=== PATIENT | male | born 1955 | race Two or more races ===

== ENCOUNTER 2016-07-11 01:53 | Emergency (ER) | payer OTHER ==
[2016-07-11 02:01] VITALS: BP 139/93
[2016-07-11] MEDS ORDERED: Morphine INJ* 4 MG/ML 1 ML SYRINGE ONE (02:59)
[2016-07-11] MEDS ORDERED: Ondansetron INJ* 2 MG/ML VIAL ONE (02:59)
[2016-07-11] MEDS ORDERED: Morphine INJ* 4 MG/ML 1 ML SYRINGE IV ONE (03:02)
[2016-07-11] MEDS ORDERED: Ondansetron INJ* 2 MG/ML VIAL IV ONE (03:02)
[2016-07-11] MEDS ORDERED: Ketorolac INJ* 30 MG/ML 1 ML VIAL ONE (03:35)
[2016-07-11] MEDS ORDERED: Ketorolac INJ* 30 MG/ML 1 ML VIAL IM ONE (03:37)
[2016-07-11] MEDS ORDERED: NS 0.9% 1000 ML* 1,000 ML IV ONE ×2 (03:42→05:44)
[2016-07-11 04:25] LABS: Hematocrit 46 % (42-52); Hemoglobin 15.4 g/dl (14.0-18.0); Mean Corpuscular HGB Conc 33 g/dl (31-36); Mean Corpuscular Hemoglobin 31 pg (27-31); Mean Corpuscular Volume 92 fL (80-94); Mean Platelet Volume 11 um3 (7.4-10.4); Red Blood Count 5.03 10^6/ul (4.0-5.4); Red Cell Distribution Width 14 % (10.5-15); White Blood Count 8.9 10^3/ul (3.5-10.8)
[2016-07-11] MEDS ORDERED: HYDROmorphone* 1 MG/ML 1 ML SYR IV SLOW PU ONE (04:26)
[2016-07-11 04:32] LABS: Urine Bilirubin Negative (Negative); Urine Glucose Negative (Negative); Urine Nitrite Negative (Negative)
[2016-07-11 04:38] LABS: Albumin 4.4 g/dL (3.2-5.2); BUN/Creatinine Ratio 22.5 (8-20); Calcium 9.8 mg/dL (8.6-10.3); EGFR Non-African American 66.9 (>60); Globulin 2.8 g/dL (2-4); Potassium 3.7 mmol/L (3.5-5.0); Total Bilirubin 0.4 mg/dL (0.2-1.0); Total Protein 7.2 g/dL (6.4-8.9)
--- NOTE | 2016-07-11 07:02 | ED ---
Vincenzo Smith Adam, scribed for Bernard Inman on 07/11/16 at 0334 . Abdominal Pain/Male - HPI Summary HPI Summary: Pt is a 61 year old male presenting with pain in his RLQ and right flank. It radiates into his right testicle and right thigh. The pain set on suddenly at 23 :30 and was growing progressively worse until he was given pain medication in the ED. The pain is currently a 6-7 out of 10 in severity. Pt also c/o nausea w/ o vomiting. He had a BM since the onset of pain and it did not affect the pain. Pt denies any hx of kidney stones. Surgical Hx of TURP. He reports that a low amount of blood has been noted in his urine by Dr. Garnett in the past. - History of Current Complaint Chief Complaint: EDGeneral Stated Complaint: RIGHT SIDE PAIN/TESTICLE PAIN Time Seen by Provider: 07/11/16 03:17 Hx Obtained From: Patient Onset/Duration: Sudden Onset, Lasting Hours, Still Present Timing: Constant Severity Initially: Moderate Severity Currently: Mild Pain Intensity: 7 Pain Scale Used: 0-10 Numeric Location: Discrete At: RLQ, Flank - Right Radiates: Yes Radiates to: Other - Right testicle and right thigh Aggravating Factor(s): Nothing Alleviating Factor(s): Nothing Associated Signs And Symptoms: Positive: Nausea. Negative: Vomiting - Allergies/Home Medications Allergies/Adverse Reactions: Allergies Allergy/AdvReac Type Severity Reaction Status Date / Time Ciprofloxacin [From Cipro] Allergy Intermediate flu Verified 07/11/16 02:45 symptoms PMH/Surg Hx/FS Hx/Imm Hx Endocrine/Hematology History: Denies: Hx Diabetes Respiratory History: Denies: Hx Asthma, Hx Chronic Obstructive Pulmonary Disease (COPD) History: Reports: Hx Benign Prostatic Hyperplasia, Other Problems/ Disorders - Urethral strictures Sensory History: Reports: Hx Contacts or Glasses - for reading Opthamlomology History: Reports: Hx Contacts or Glasses - for reading - Surgical History Surgery Procedure, Year, and Place: TURP - Immunization History Date of Tetanus Vaccine: Unsure Date of Influenza Vaccine: UTD Infectious Disease History: No Infectious Disease History: Denies: Traveled Outside the [place] in Last 30 Days - Family History Known Family History: Positive: Cardiac Disease - Father, Other - Leukemia ( Mother) - Social History Occupation: Employed Full-time Lives: With Family - Alcohol Use: Daily Alcohol Amount: an ounce daily Hx Substance Use: No Substance Use Type: Reports: None Hx Tobacco Use: No Smoking Status (MU): Never Smoked Tobacco Review of Systems Negative: Fever Positive: Abdominal Pain - RLQ, Nausea. Negative: Vomiting Positive: flank pain - Right All Other Systems Reviewed And Are Negative: Yes Physical Exam Triage Information Reviewed: Yes Vital Signs On Initial Exam: Initial Vitals Temp Pulse Resp BP Pulse Ox 97.8 F 58 20 139/93 100 07/11/16 01:55 07/11/16 01:55 07/11/16 01:55 07/11/16 01:55 07/11/16 01:55 Vital Signs Reviewed: Yes Appearance: Positive: Well-Appearing, No Pain Distress Skin: Positive: Warm, Skin Color Reflects Adequate Perfusion, Dry Head/Face: Positive: Normal Head/Face Inspection Eyes: Positive: EOMI, ALVARO ENT: Positive: Normal ENT inspection Neck: Positive: Supple, Nontender Respiratory/Lung Sounds: Positive: Clear to Auscultation, Breath Sounds Present Cardiovascular: Positive: RRR, Pulses are Symmetrical in both Upper and Lower Extremities Abdomen Description: Positive: Other: - Tenderness in the RLQ. Mild tenderness in right scrotal area. Bowel Sounds: Positive: Present Musculoskeletal: Positive: Normal, Strength/ROM Intact - Joel Coma Scale Coma Scale Total: 15 Diagnostics - Vital Signs Vital Signs Temp Pulse Resp BP Pulse Ox 07/11/16 03:03 16 07/11/16 01:55 97.8 F 58 20 139/93 100 - Laboratory Result Diagrams: 07/11/16 02:55 07/11/16 02:55 Lab Statement: Any lab studies that have been ordered have been reviewed, and results considered in the medical decision making process. - CT ABDOMEN/PELVIS CT Interpretation Completed By: Radiologist - IMPRESSION: NO INFLAMMATORY PROCESS IDENTIFIED IN THE ABDOMEN OR PELVIS. NO ABDOMINAL MASS, ADENOPATHY OR COLLECTION SEEN. NO URINARY TRACT CALCULI OR EVIDENCE OF URINARY TRACT OBSTRUCTION SEEN. NO EXPLANATION SEEN FOR THIS PATIENT'S FLANK PAIN. - EKG 05:51 Cardiac Rate: NL - 82 BPM EKG Rhythm: Sinus Rhythm - Normal - Additional Comments Diagnostic Additional Comments: Troponin I - 0.00 Abdominal Pain Fem Course/Dx - Diagnoses Provider Diagnoses: Flank pain Discharge - Discharge Plan Condition: Stable Disposition: OTHER Discharge Disposition Comment: Sign out to Dr. Loya, pending re-evaluation and ultrasound. Prescriptions: Azithromycin TAB* [Zithromax TAB (Z-VITO) 250 mg #6 tabs] 250 mg PO DAILY #4 tab Referrals: David Mon MD [Primary Care Provider] - The documentation as recorded by the Vincenzo oshea Adam accurately reflects the service I personally performed and the decisions made by , Bernard Inman.
--- NOTE | 2016-07-11 08:57 | RAD ---
Indication: Scrotal pain. Real-time sonography of the scrotum was performed. The right testis measures 4.4 x 2.6 x 3.1 cm. No intratesticular masses are noted. Normal flow is noted in the right testis. The epididymis measures 13 x 17 mm. The right epididymis is mildly enlarged with increased flow consistent with right-sided epididymitis. Trace right hydrocele is noted. The left testis measures 4.3 x 2.4 x 2.8 cm. No intratesticular masses are noted. Normal flow is noted in the left testis. The epididymis measures 9 x 11 mm. No hydrocele is noted. IMPRESSION: MILDLY ENLARGED RIGHT EPIDIDYMIS WITH HYPERVASCULARITY ON DOPPLER SONOGRAM SUGGESTIVE OF RIGHT-SIDED EPIDIDYMITIS WITH A TRACE RIGHT HYDROCELE. NO INTRATESTICULAR MASSES ARE NOTED.
[2016-07-11] MEDS ORDERED: Sulfamethox/Trimethoprim DS 800/160* TAB PO ONE (10:20)
--- NOTE | 2016-07-13 09:53 | RAD ---
Indication: Right flank pain. CT of the abdomen and pelvis was performed without oral or IV contrast administration. Coronal and sagittal reconstructed images were obtained. The lung bases demonstrate no pleural fluid or masses. Small nodule is noted in the right middle lobe peripherally measuring 4 mm. Heart is of normal size without evidence of pericardial effusion. The liver is normal in size. No focal lesions or intrahepatic duct dilatation is noted. The gallbladder demonstrates no calcified gallstones. No pericholecystic fluid or wall thickening is identified. The pancreas demonstrates no mass or pancreatic duct dilatation. The spleen is normal in size. The adrenal glands demonstrates right adrenal mass measuring approximately 11 mm may represent a small adenoma. There may be a small adenoma in the left adrenal gland measuring 7 mm. No hydronephrosis is noted in either kidney. Low density lesion upper pole right kidney measures up to 16 mm and may represent a cyst. No retroperitoneal lymphadenopathy is noted. Atherosclerotic aorta without evidence of aneurysmal dilatation is noted. CT of the pelvis demonstrates distended urinary bladder. Prostate and seminal vesicles are unremarkable. The colon is filled with stool. No hernias are identified. IMPRESSION: 1. No evidence of obstructive uropathy is noted. 2. Adrenal lesions are unchanged from previous exam of November 28, 2005. Right renal cyst may be slightly increased in size since previous exam.
== END 2016-07-11 12:04 | disposition home or self-care (01) ==
LOC: ED 01:53
DX: R10.31 Right lower quadrant pain (principal); R11.0 Nausea; R42 Dizziness and giddiness
CPT/HCPCS: 36415; 74176; 76870; 80053; 81003; 83690; 84484; 85025; 93005; 96374; 96375; 99283; A9270-GY; J1170; J1885; J2270; J2405

== ENCOUNTER 2018-03-18 12:52 | Observation (INO) | payer OTHER ==
--- NOTE | 2018-03-18 13:16 | ED ---
HPI Chest Pain - HPI Summary HPI Summary: The patient is a 63 y/o M presenting to [facility] with a chief complaint of diffuse CP starting this morning. The pain, which is located in the left sternal and lateral area of the chest, has been intermittent throughout the morning. When it is present, the pain is described as a clenching and tension feeling. The pain is currently very dull, rated 1/10 in severity. He denies nausea, SOB, and diaphoresis at this time. He has not had this particular pain before, but he recently had a heart attack within the last month while in [place], where he had symptoms of decreased stamina and difficulty with ambulation. After the heart attack, he had a stent placed. He takes Eplerenone, Atorvastatin, Aspirin, Metoprolol, and Brilinta. - History of Current Complaint Time Seen by Provider: 03/18/18 12:58 Hx Obtained From: Patient Onset/Duration: Started Hours Ago - this morning, Resolved Timing: Intermittent, Lasting Hours Initial Severity: Moderate Current Severity: Mild Pain Intensity: 1 Pain Scale Used: 0-10 Numeric Chest Pain Location: Diffuse, Lower Sternal, Left Lateral Chest Pain Radiates: No Character: Other: - clencing, tension Aggravating Factor(s): Nothing Alleviating Factor(s): Nothing Associated Signs and Symptoms: Negative: Shortness of Breath, Diaphoresis, Nausea - Allergy/Home Medications Allergies/Adverse Reactions: Allergies Allergy/AdvReac Type Severity Reaction Status Date / Time ciprofloxacin Allergy Intermediate Nausea Verified 03/18/18 14:14 Home Medications: Home Medications Aspirin 81 mg CHEW TAB* 81 mg PO QPM 03/18/18 [History Confirmed 03/18/18] Atorvastatin Calcium 40 mg PO DAILY 03/18/18 [History Confirmed 03/18/18] Brilinta 90 MG* 90 mg PO BID 03/18/18 [History Confirmed 03/18/18] Eplerenone 12.5 mg PO DAILY 03/18/18 [History Confirmed 03/18/18] Metoprolol Succinate 12.5 mg PO BID 03/18/18 [History Confirmed 03/18/18] PMH/Surg Hx/FS Hx/Imm Hx Endocrine/Hematology History: Reports: Hx Diabetes - diet controlled Cardiovascular History: Denies: Hx Hypertension Respiratory History: Denies: Hx Asthma, Hx Chronic Obstructive Pulmonary Disease (COPD) History: Reports: Hx Benign Prostatic Hyperplasia, Other Problems/ Disorders - Urethral strictures Sensory History: Reports: Hx Contacts or Glasses - for reading Opthamlomology History: Reports: Hx Contacts or Glasses - for reading - Surgical History Surgery Procedure, Year, and Place: TURP with f/u cauterization - Immunization History Date of Tetanus Vaccine: Unsure Date of Influenza Vaccine: UTD Infectious Disease History: No Infectious Disease History: Reports: Traveled Outside the [place] in Last 30 Days - Family History Known Family History: Positive: Cardiac Disease - Father, Other - Leukemia ( Mother) - Social History Alcohol Use: Daily Alcohol Amount: an ounce daily Hx Substance Use: No Substance Use Type: Reports: None Hx Tobacco Use: No Smoking Status (MU): Never Smoked Tobacco Review of Systems Negative: Skin Diaphoresis Positive: Chest Pain - diffuse under left lower sternal to lateral Negative: Shortness Of Breath Negative: Nausea All Other Systems Reviewed And Are Negative: Yes Physical Exam - Summary Physical Exam Summary: Appearance: The patient is well-nourished in no acute distress and in no acute pain. Skin: The skin is warm and dry and skin color reflects adequate perfusion. HEENT: The head is normocephalic and atraumatic. The pupils are equal and reactive. The conjunctivae are clear and without drainage. Nares are patent and without drainage. Mouth reveals moist mucous membranes and the throat is without erythema and exudate. The external ears are intact. The ear canals are patent and without drainage. The tympanic membranes are intact. Neck: The neck is supple with full range of motion and non-tender. There are no carotid bruits. There is no neck vein distension. Respiratory: Chest is non-tender. Lungs are clear to auscultation and breath sounds are symmetrical and equal. Cardiovascular: Heart is regular rate and rhythm. There is no murmur or rub auscultated. There is no peripheral edema and pulses are symmetrical and equal. Abdomen: The abdomen is soft and non-tender. There are normal bowel sounds heard in all four quadrants and there is no organomegaly palpated. Musculoskeletal: There is no back tenderness noted. Extremities are non-tender with full range of motion. There is good capillary refill. There is no peripheral edema or calf tenderness elicited. Neurological: Patient is alert and oriented to person, place and time. The patient has symmetrical motor strength in all four extremities. Cranial nerves are grossly intact. Deep tendon reflexes are symmetrical and equal in all four extremities. Psychiatric: The patient has an appropriate affect and does not exhibit any anxiety or depression. Triage Information Reviewed: Yes Vital Signs On Initial Exam: Initial Vitals Temp Pulse Resp BP Pulse Ox 99.3 F 74 16 150/90 100 03/18/18 12:58 03/18/18 12:58 03/18/18 12:58 03/18/18 12:58 03/18/18 12:58 Vital Signs Reviewed: Yes Diagnostics - Vital Signs Vital Signs Temp Pulse Resp BP Pulse Ox 03/18/18 13:03 20 150/90 03/18/18 13:01 17 03/18/18 12:58 99.3 F 74 16 150/90 100 - Laboratory Result Diagrams: 03/18/18 13:24 03/18/18 13:24 Lab Statement: Any lab studies that have been ordered have been reviewed, and results considered in the medical decision making process. - Radiology CXR Radiology Interpretation Completed By: Radiologist Summary of Radiographic Findings: No active cardiopulmonary disease. ED physician has reviewed this report. - EKG 13:03 Cardiac Rate: NL - 72 BPM EKG Rhythm: Sinus Rhythm Summary of EKG Findings: No STEMI. Re-Evaluation - Re-Evaluation First Eval Re-Evaluation Time: 14:55 Change: Unchanged Comment: I spoke with the patient concerning admission [place] [facility] He agrees with this plan. Chest Pain Course/Dx - Course Course Of Treatment: Mr. Rizzo presented with an atypical chest pain that had no identifiable exacerbating or relieving factors or associated symptoms. Approximately 3 weeks ago he was stented in [place] after a heart attack. His initial EKG and troponin here were negative. He very specifically denies any pleuritic component and states that he can cough violently without pain. On arrival his vital signs are stable and he was in no obvious distress. 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 Dr. Pineda has not seen the patient in about 5 years but is aware of his recent illness. Apparently the patient was having some symptoms prior to going to [place] but did not tell anyone. The patient also apparently left the hospital in [place] prematurely. Dr. Pineda recommends that since the details are unclear of his pathology that it would be more prudent to admit him at this time for further workup. The hospitalists were contacted for admission. - Diagnoses Provider Diagnoses: Chest pain - Provider Notifications Discussed Care Of Patient With: Jake Pineda - cardiology Time Discussed With Above Provider: 14:30 Instructed by Provider To: Other - I spoke with Dr. Pineda, who states he is unsure about the patient's symptoms because he hasn't seen the patient in a few years. He recommends admission. I spoke with Dr. Kelly, who accepts the patient for admission at 14:55. Discharge - Sign-Out/Discharge Documenting (check all that apply): Patient Departure - Patient will be admitted [place] [facility] [place] care by Dr. Kelly. - Discharge Plan Condition: Stable Disposition: ADMITTED TO [facility] - Billing Disposition and Condition Condition: STABLE Disposition: Admitted to [facility] - Attestation Statements Document Initiated by Chucky: Yes Documenting Scribe: Tete Du Provider For Whom Chucky is Documenting (Include Credential): Dr. Faraz Gonzales MD Scribe Attestation: ITete scribed for Dr. Faraz Gonzales MD on 03/18/18 at 1755. Scribe Documentation Reviewed: Yes Provider Attestation: The documentation as recorded by the Tete oshea accurately reflects the service I personally performed and the decisions made by me, Dr. Faraz Gonzales MD Status of Scribalex Document: Viewed
[2018-03-18 13:36] LABS: ABS Basophils 0 10^3/ul (0-0.2); ABS Eosinophils 0.1 10^3/ul (0-0.6); ABS Lymphocytes 1.2 10^3/ul (1.0-4.8); ABS Neutrophils 5.8 10^3/ul (1.5-7.7); ABS Nucleated RBC 0 10^3/ul; Eosinophil % 1.5 %; Hematocrit 44 % (42-52); Hemoglobin 14.7 g/dl (14.0-18.0); Lymphocyte % 14.5 %; Mean Corpuscular HGB Conc 34 g/dl (31-36); Mean Corpuscular Hemoglobin 31 pg (27-31); Mean Corpuscular Volume 91 fL (80-94); Mean Platelet Volume 9.2 fL (7.4-10.4); Nucleated Red Blood Cells % 0; Platelet Count 195 10^3/ul (150-450); Red Blood Count 4.78 10^6/ul (4.00-5.40); Red Cell Distribution Width 14 % (10.5-15); White Blood Count 8.1 10^3/ul (3.5-10.8)
[2018-03-18 13:52] LABS: INR 1.06 (0.77-1.02)
[2018-03-18 13:58] LABS: Albumin 4.1 g/dL (3.2-5.2); Albumin/Globulin Ratio 1.4 (1-3); BUN/Creatinine Ratio 17.8 (8-20); Calcium 9.6 mg/dL (8.6-10.3); EGFR Non-African American 69.4 (>60); Potassium 4.3 mmol/L (3.5-5.0); Total Bilirubin 0.4 mg/dL (0.2-1.0); Total Protein 7.1 g/dL (6.4-8.9)
--- OUTSIDE RECORDS SUMMARY | 2018-03-18 14:11 | XMS REPORT | Continuity of Care Document ---
:1955 External Reference #:[id number] Author Name Danyel Clark Care Team Providers Name Role Phone David Mon MD Primary Care Physician Unavailable Payers Type Date Identification Numbers Payment Provider Subscriber Policy Number: [id number] [employer] Ailyn Rizzo Group Number: [id number] [address] PayID: [id number] [place] [address] Advance Directives Description No Information Available Problems Date Description Provider Status Onset: 07/20/2012 Electrocardiogram abnormal Jake Pineda M.D. Active Onset: 07/20/2012 Difficulty breathing Jake Pineda M.D. Active Onset: 11/26/2011 Fever Joseph Dean M.D. 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 Tobacco Use Start: Unknown Patient has never smoked Smoking Status Reviewed: 03/17/18 Patient has never smoked Allergies, Adverse Reactions, Alerts Date Description Reaction Status Severity Comments 11/26/2011 Cipro dizziness, nausea Active Medications Medication Date Status Form Strength Qnty SIG Indications Ordering Provider Brilinta Active Tablets 90mg 1 tab Unknown 000 by mouth twice a day Metoprolol Active Tablets ER 25mg 1 by Unknown Succinate ER 000 24HR mouth every day Atorvastatin Active Tablets 40mg 1 by Unknown Calcium 000 mouth every day Eplerenone Active Tablets 25mg 1 by Unknown 000 mouth every day Ibuprofen 00/00/0 Hx Tablets 400mg 100tabs po Unknown 000 - q4-6h prn 018 Cefdinir 0 Hx Capsules 300mg 20caps 1 po Unknown 000 - bid 012 Aleve 0 Hx Capsules 220mg 60caps prn Unknown 000 - 018 Immunizations CPT Code Status Date Vaccine Lot # [id number] Given 12/09/2011 Fluzone Vaccine [id number] Vital Signs Date Vital Result Comment 03/17/2018 11:07am Height 67.50 inches 5'7.50" Weight 127.00 lb BP Systolic 118 mmHg BP Diastolic 72 mmHg Respiratory Rate 15 /min Body Temperature 96.9 F Pain Level 0 BMI (Body Mass Index) 19.6 kg/m2 12/29/2011 8:49am BP Systolic 80 mmHg BP Diastolic 50 mmHg Respiratory Rate 14 /min Body Temperature 97.2 F 12/14/2011 4:12pm Height 68 inches 5'8" Heart Rate 83 /min BP Systolic Sitting 131 mmHg BP Diastolic Sitting 74 mmHg Body Temperature 98.0 F 12/09/2011 4:17pm Height 68 inches 5'8" Heart Rate 80 /min BP Systolic Sitting 116 mmHg BP Diastolic Sitting 71 mmHg Body Temperature 98.5 F 11/26/2011 1:42pm Height 68 inches 5'8" Weight 135.00 lb Heart Rate 60 /min BP Systolic 94 mmHg BP Diastolic 58 mmHg Respiratory Rate 16 /min Body Temperature 97.2 F BMI (Body Mass Index) 20.5 kg/m2 Results Test Date Facility Test Result H/L Range Note CBC With Manual 02/02/2012 [facility] White Blood 7.0 10^3/uL 4.8-10.[address] [place] [address] [phone] Red Blood Count 5.39 10^6/uL 4.0-5.4 Hemoglobin 15.2 g/dL 14.0-18.0 Hematocrit 46 % 42-52 Mean Corpuscular Volume 85 fL 80-94 Mean Corpuscular Hemoglobin 28 pg 27-31 Mean Corpuscular HGB Conc 33 g/dL 31-36 Red Cell Distribution Width 20 % High 10.5-15 Platelet Count 197 10^3/uL 150-450 Mean Platelet Volume 10 um3 7.4-10.4 Abs Neutrophils 4.0 10^3/uL 1.5-7.7 Abs Lymphocytes 2.0 10^3/uL 1.0-4.8 Abs Monocytes 0.8 10^3/uL 0-0.8 Abs Eosinophils 0.2 10^3/uL 0-0.6 Abs Basophils 0.1 10^3/uL 0-0.2 Abs Nucleated RBC 0 10^3/uL Neutrophil % 57.0 % 38-83 Band % 1.0 % 0-8 Lymphocytes % 34.0 % 25-47 Monocytes % 5.0 % 0-13 Eosinophils % 2.0 % 0-6 Basophil % 0 % 0-2 Reactive Lymph % 1.0 % 0-6 Metamyelocytes % 0 % 0-2 Myelocytes % 0 % 0-1 Promyelocytes % 0 % Blast % 0 % RBC Morphology Normal Normal CBC W/Manual 12/28/2011 [facility] White Blood 6.7 10^3/uL 4.8-10.[address] Count [place], [place] [address] [phone] Red Blood Count 5.13 10^6/uL 4.0-5.4 Hemoglobin 14.1 g/dL 14.0-18.0 Hematocrit 43 % 42-52 Mean Corpuscular Volume 84 fL 80-94 Mean Corpuscular Hemoglobin 28 pg 27-31 Mean Corpuscular HGB Conc 33 g/dL 31-36 Red Cell Distribution Width 17 % High 10.5-15 Platelet Count 234 10^3/uL 150-450 Mean Platelet Volume 10 um3 7.4-10.4 Abs Neutrophils 4.3 10^3/uL 1.5-7.7 Abs Lymphocytes 1.5 10^3/uL 1.0-4.8 Abs Monocytes 0.7 10^3/uL 0-0.8 Abs Eosinophils 0.2 10^3/uL 0-0.6 Abs Basophils 0 10^3/uL 0-0.2 Abs Nucleated RBC 0 10^3/uL Neutrophil % 60.0 % 38-83 Band % 1.0 % 0-8 Lymphocytes % 29.0 % 25-47 Monocytes % 7.0 % 0-13 Eosinophils % 1.0 % 0-6 Basophil % 2.0 % 0-2 Reactive Lymph % 0 % 0-6 Metamyelocytes % 0 % 0-2 Myelocytes % 0 % 0-1 Promyelocytes % 0 % Blast % 0 % RBC Morphology Normal Normal CMP Panel 12/28/2011 [facility] Sodium 140 mmol/L 133-[address] [place] [address] [phone] Potassium 4.3 mmol/L 3.5-5.0 Chloride 103 mmol/L 101-111 Co2 Carbon Dioxide 32.0 mmol/L 22-32 Anion Gap 5.0 mmol/L 2-11 Glucose 109 mg/dL High 70-100 Blood Urea Nitrogen 12 mg/dL 6-24 Creatinine 0.90 mg/dL 0.50-1.40 BUN/Creatinine Ratio 13.3 8-20 Calcium 9.5 mg/dL 8.1-9.9 Total Protein 6.4 GM/DL 6.2-8.1 Albumin 3.6 GM/DL 3.6-5.4 Globulin 2.8 GM/DL 2-4 Albumin/Globulin Ratio 1.3 1-3 Total Bilirubin 0.8 mg/dL 0.1-1.0 1 Alkaline Phosphatase 103 U/L 30-110 Alt 16 U/L 14-54 Ast 17 U/L 12-42 Egfr Non- 86.7 >60 Egfr 111.5 >60 2 Laboratory test 12/28/2011 [facility] C Reactive 0.6 mg/dL High Less Than finding [address] Protein 0.5 [place] [address] [phone] Erythrocyte Sed Rate 30 MM/HR High 0-20 Retic Automated 12/04/2011 [facility] Red Cell 4.47 CUMM Low 4.6-6.[address] [place] [address] [phone] Hemoglobin 12.5 g/dL Low 14.0-18.0 Hematocrit 38 % Low 42-52 Reticulocyte Count 0.99 % 0.5-1.5 Corrected Retic 0.8 % 0.5-1.5 Retic Index 0.5 Mean Retic Volume 109.1 Immature Retic Fraction 0.36 RBC Retic Count 4.47 CUMM Low 4.6-6.2 Hematocrit For Retic Coun 38 % Low 42-52 Laboratory test 12/04/2011 [facility] Ferritin 115 NG/ML 24- [address] [place] [address] [phone] Protein 12/04/2011 [facility] Urine Pattern (SEE NOTE) [address] Ur [address] [place] [address] [phone] Total Protein Random Urine 7 mg/dL Laboratory 12/04/2011 [facility] Blood 4 test finding [address] Culture <SEE NOTE> [place] [address] [phone] Brucella AB 12/04/2011 [facility] Brucella Negative Negative Igg Eia QN [address] AB, [place] [address] [phone] Brucella AB, Igm Negative Negative Brucella AB Interpretation . () 5 Tarsha Anti-Nuclear 12/04/2011 [facility] Antinuclear AB NEGATIVE Negative Antibody [address] [place] [address] [phone] Laboratory test 12/04/2011 [facility] LDH 126 U/L 95-185 finding [address] [place] [address] [phone] C Reactive Protein 1.7 mg/dL High Less Than 0.5 Rheumatoid Factor < 15 IU/mL <15 6 Iron And Tibc 12/04/2011 [facility] Iron Total 36 g/dL Low 45-182 Serum [address] [place] [address] [phone] Unsaturated Iron Binding 280 g/dL Total Iron Binding Capacity 316 g/dL 250-450 % Iron Saturation 11 % Low 15-55 Spep Protein 12/04/2011 [facility] Albumin 2.83 GM/DL Low 3.0- 4.35 Electro, Serum [address] [place] [address] [phone] Alpha 1 0.29 GM/DL 0.09-0.33 Alpha 2 1.34 GM/DL High 0.59-1.18 Beta 0.85 GM/DL 0.68-1.02 Gamma 1.30 GM/DL 0.76-1.60 Albumin % 42.9 % Low 46-63 Alpha 1 % 4.4 % 1.2-5.3 Alpha 2 % 20.3 % High 9-17 Beta % 12.9 % 10-16 Gamma % 19.7 % 12-22 A/G Ratio 0.7 Low 0.9-2 Total Protein 6.6 GM/DL 6.2-8.1 Spep Comments (SEE NOTE) 7 Vitamin B12 And 12/04/2011 [facility] Vitamin B12 316 pg/mL 180-914 Folate Serum [address] [place] [address] [phone] Folic Acid 7.7 NG/ML See Below 8 Comp Metabolic Panel 11/26/2011 [facility] Sodium 137 mmol/L 135-[address] [place] [address] [phone] Potassium 4.3 mmol/L 3.5-5.0 Chloride 101 mmol/L 101-111 Co2 (Carbon Dioxide) 30.0 mmol/L 22-32 Anion Gap 6.0 mmol/L 2-11 9 Glucose 95 mg/dL 70-100 BUN 12 mg/dL 6-24 Creatinine 0.8 mg/dL 0.50-1.40 One Over Creatinine 1.25 BUN/Creatinine Ratio 15.0 8-20 Calcium 9.4 mg/dL 8.1-9.9 Total Protein 6.6 GM/DL 6.2-8.1 Albumin 3.2 GM/DL Low 3.6-5.4 Globulin 3.4 GM/DL 2-4 Albumin/Globulin Ratio 0.9 Low 1-3 Bilirubin Total 0.5 mg/dL 0.4-1.5 10 Alkaline Phosphatase 109 U/L 39-117 Alt (SGPT) 27 U/L 17-63 Ast (Sgot) 21 U/L 12-42 eGFR Non- 99.3 > 60 eGFR 127.7 > 60 11 CBC With Manual 11/26/2011 [facility] White Blood 8.4 CUMM 4.8-10.[address] [place] [address] [phone] Red Cell Count 4.46 CUMM Low 4.6-6.2 Hemoglobin 12.8 g/dL Low 14.0-18.0 Hematocrit 38 % Low 42-52 Mean Corpuscular Volume 85 um3 80-94 Mean Corpuscular Hemoglob 29 pg 27-31 Mean Corpuscular HGB Cone 34 g/dL 32-36 Redcell Distribution WDTH 14 % 10.5-15 Platelet Count 324 CUMM 150-450 Mean Platelet Volume 9.5 um3 7.4-10.4 Absolute Neutrophil Count 5.9 1.5-7.7 Polysegmented Neutrophil 75 % 38-83 Band Neutrophil 1 % 0-8 Lymphocyte 15 % Low 25-47 Monocyte 5 % 0-13 Eosinophil 1 % 0-6 Basophil 3 % High 0-2 Anisocytosis SLIGHT Laboratory test 11/26/2011 [facility] C Reactive 4.1 mg/dL High Less Than finding [address] Protein 0.5 [place] [address] [phone] Erythrocyte Sed Rate 87 MM/HR High 0-20 Testosterone Total 475.1 ng/dL 175-781 12 Blood Culture <SEE NOTE> 13 Vad 11/26/2011 [facility] Vad Final Nonreactive Nonreactive [address] [place] [address] [phone] 1 A metabolite of Naproxen, O-desmethylnaproxen, has been shown to interfere with the [place]-Christa method for measuring total bilirubin. Samples from patients who have taken Naproxen have shown spurious elevation in total bilirubin levels. 2 Because ethnic data is not always readily available, this report includes an eGFR for both -Americans and non- Americans. The National Kidney Disease Education Program (NKDEP) does not endorse the use of the MDRD equation for patients that are not between the ages of 18 and 70, are , have extremes of body size, muscle mass, or nutritional status, or are non- or non-. According to the National Kidney Foundation, irrespective of diagnosis, the stage of the disease is based on the level of kidney function: Stage Description GFR(mL/min/1.73 m(2)) 1 Kidney damage with normal or decreased GFR 90 2 Kidney damage with mild decrease in GFR 60-89 3 Moderate decrease in GFR 30-59 4 Severe decrease in GFR 15-29 5 Kidney failure <15 (or dialysis) 3 URINE PROTEIN BELOW DETECTABLE LEVEL. 4 RUN DATE: 12/09/11 [facility] NMI LIVE PAGE 1 RUN TIME: 0840 Specimen Inquiry RUN USER: INTERFACE Name: AILYN RIZZO Status: REG REF Re12/04/11 Age/Sex: 56/M Unit#: [id number] Location: [address] [place] [address]. : 51 SPEC #: [id number] ESSENCE: 12/04/11 STATUS: COMP REQ #: [id number] RECD: 12/04/[address]: Joseph Dean MD SOURCE: BLOOD ENTR: 12/04/[address] [facility] [address]: David Mon MD SPDESC: ROSA LONDONO MD, DMD, Jeffrey S. ORDERED: BLOOD CULTURE QUERIES: MEDENT REQUISITION # [id number] ACT WKST: BC 12/05/11 #1 Procedure Result Verified Site > AEROBIC CULTURE BOTTLE Final 12/09/11- 40 ML NO GROWTH AFTER 5 DAYS > ANAEROBIC CULTURE BOTTLE Final 12/09/11- 40 ML NO GROWTH AFTER 5 DAYS - [facility] Permit #[id number] [address] [place] [address] DEPARTMENT OF PATHOLOGY, [address] [place] [address] [facility] Permit #[id number] Giancarlo Servin M.D. Child Care Giver 5 Recommend repeat testing in 14-21 days if recent infection is suspected. Test Performed by: [facility] [address] [place] [address] [employer] Tank Repairer: Jose M Bowser III, M.D. 6 Test Performed by: [facility] [address] [place] [address] [employer] Tank Repairer: Jose M Bowser III, M.D. 7 HYPOALBUMINEMIA 8 Please note: New reference range, effective 03/12/11 NORMAL REFERENCE RANGE: GREATER THAN 4.1 NG/ML 9 Anion gap measurement may be of limited value in the presence of any alkalosis, especially in a combined acid base disorder. . 10 A metabolite of Naproxen, O-desmethylnaproxen, has been shown to interfere with the [place] method for measuring total bilirubin. Samples from patients who have taken Naproxen have shown spurious elevation in total bilirubin levels. 11 Because ethnic data is not always readily available, this report includes an eGFR for both -Americans and non- Americans. The National Kidney Disease Education Program (NKDEP) does not endorse the use of the MDRD equation for patients that are not between the ages of 18 and 70, are , have extremes of body size, muscle mass, or nutritional status, or are non- or non-. According to the National Kidney Foundation, irrespective of diagnosis, the stage of the disease is based on the level of kidney function: Stage Description GFR(mL/min/1.73 m(2)) 1 Kidney damage with normal or decreased GFR 90 2 Kidney damage with mild decrease in GFR 60-89 3 Moderate decrease in GFR 30-59 4 Severe decrease in GFR 15-29 5 Kidney failure <15 (or dialysis) 12 REFERENCE RANGE ADULT MALES 175-781 NG/DL ADULT FEMALES 10-75 NG/DL NOTE: PEDIATRIC REFERENCE RANGES HAVE NOT BEEN ESTABLISHED FOR THIS ASSAY. PLEASE REFER TO AN EXTERNAL SOURCE FOR AN ACCURATE REFERENCE RANGE. . 13 RUN DATE: 12/01/11 [facility] NMI LIVE PAGE 1 RUN TIME: 1516 Specimen Inquiry RUN USER: INTERFACE Name: AILYN RIZZO Status: REG REF Re11/26/11 Age/Sex: 56/M Unit#: [id number] Location: [address] [place] [address]. : 51 SPEC #: [id number] ESSENCE: 11/26/11 STATUS: COMP REQ #: [id number] RECD: 11/26/[address]: Joseph Dean MD SOURCE: BLOOD ENTR: 11/26/11-[address]: Yaa RIVERA,David Mcmullen [facility]: ROSA LONDONO MD, DMD, Chris Ramirez ORDERED: BLOOD CULTURE QUERIES: MEDENT REQUISITION # [id number] ACT WKST: BC 11/27/11 #1 Procedure Result Verified Site > AEROBIC CULTURE BOTTLE Final 12/01/11- 1516 ML NO GROWTH AFTER 5 DAYS > ANAEROBIC CULTURE BOTTLE Final 12/01/11- 1516 ML NO GROWTH AFTER 5 DAYS ML - [facility] Permit #[id number] [address] [place] [address] DEPARTMENT OF PATHOLOGY, [address] [place] [address] [facility] Permit #[id number] Balwinder Chicas M.D. Director Hu Osuna M.D. Child Care Giver 14 It is recognized that currently available assays for the detection of antibodies to HIV-1 and/or HIV-2 may not detect all infected individuals. HIV antibodies may be undetectable in some stages of the infection and in some clinical conditions. The performance of this assay has not been established for populations of infants or children. Assayed by Chemiluminescence Microparticle Immunoassay on the Alcira Advia Centaur CP. Values obtained with different methods or kits cannot be used interchangeably.The diagnostic specificity of the ADVIA Centaur 1/O/2 Enhanced assay in the low risk population was 99.90% (6052/6058) with a 95% confidence interval of 99.78 to 99.96%. Procedures Date Code Description Status 03/21/2013 22796 Treadmill Interp/Report Only Completed 03/21/2013 38273 Stress Test Supervsn W/Out I/R Completed 03/19/2013 36507 Mobile Cardiovascular Telemetry Over 24 HR Up To 30 Days Completed 03/01/2013 19373 EEG Recording Awake & Drowsy Completed 03/01/2013 08288 ECHO Transthorasic Realtime 2D W Doppler & Color Flow Hosp Completed 07/20/2012 25582 ECHO Stress Test Incl Perf Contiuous ekg Monitoring W/Phys Completed Superv 07/20/2012 31707 ECHO Stress Test Incl Perf Contiuous ekg Monitoring W/Phys Completed Superv 05/05/2004 43924 ECHO/Stress Completed 05/05/2004 30413 Stress Test Completed Encounters Type Date Location Provider Dx Diagnosis Office Visit 03/21/2013 [facility] Jake F. 780.2 Syncope & Collapse 9:30a Giancarlo Pineda Office Visit 03/01/2013 [facility] Onur Hardy, 432.1 Hemorrhage 1:31p renetta Murphy M.D. [facility] 780.2 Syncope & Collapse 920 Contusion Face Scalp & Neck Except Eyes 790.99 Blood Examination Other Nonspecific Findings Office Visit 02/28/2013 [facility] Ailyn Bradley 432.1 Hemorrhage 1:30p renetta Murphy II, M.D. [facility] Office Visit 07/20/2012 [facility] Jake Golden 786.09 Dyspnea & 3:30p Giancarlo Pineda Respiratory Abnormalities Other 794.31 Electrocardiogram (ECG) (EKG) Abnormal Office Visit 12/29/2011 [facility] Joseph Vasquez 780.60 Fever, Unspecified 8:50a For Delio Dean M.D. Diseases Office Visit 12/14/2011 [facility] Joseph Vasquez 780.60 Fever, Unspecified 4:20p For Delio Dean M.D. Diseases Office Visit 12/09/2011 [facility] Joseph Vasquez V04.81 Need For 4:20p For Delio Dean M.D. Prophylactic Diseases Vaccination & Inoculation/Influe nza 780.60 Fever, Unspecified Office Visit 11/26/2011 2:00p [facility] Joseph Vasquez 780.60 Fever, For Delio Dean M.D. Unspecified Diseases Plan of Treatment Future Appointment(s):05/02/2018 2:15 pm - Jarocho Ramires MD at [facility]03/21/2018 3:00 pm - Jake Pineda M.D. at [facility]03/17/2018 - Jarocho Ramires, MDS43.422A Sprain of left rotator cuff capsule, initial encounterNew Therapy:Physical TherapyFollow up:Follow up: 6 weeks prn
[2018-03-18] MEDS ORDERED: Acetaminophen TAB* 325 MG PO PRN (15:42)
[2018-03-18] MEDS ORDERED: Aspirin 81 mg CHEW TAB* 81 MG TAB.CHEW PO SCH (18:00)
[2018-03-18] MEDS ORDERED: Atorvastatin* 40 MG TAB PO SCH (18:00)
--- NOTE | 2018-03-18 21:11 | HP ---
CC: Dr. Mon; Dr. Pineda* HOSPITAL MEDICINE HISTORY AND PHYSICAL: DATE OF ADMISSION: 03/18/18 PRIMARY CARE PHYSICIAN: Dr. Mon. STRUCTURED CABLING TECHNICIAN: Dr. Pineda. ATTENDING PHYSICIAN: Dean Kelly MD* (dictation provided by Debora Posey NP) CHIEF COMPLAINT: Chest pain. HISTORY OF PRESENT ILLNESS: Mr. Rizzo is a 63-year-old male with a past medical history of a recent stent placement to his RCA on 02/28/18 while in [place] for a work trip as well as diet-controlled diabetes and hyperlipidemia. The patient reports that he went to [place] for a trip related to the work he does with [employer]. When he arrived there, he was having shortness of breath while walking through the airport. On reflection, he realized that he had been having more shortness of breath with exercise even prior to leaving from [place]. The patient went to a private [place] hospital while in [place] and was evaluated. He had a troponin elevation of 0.4. He had an echocardiogram that showed a normal ejection fraction and no significant abnormalities. His troponin continued to rise and peaked at 0.7. He therefore went on for cardiac catheterization, which found a 90% stenosis to the RCA for which he received a stent. He tolerated the procedure well. Afterwards, he had some relative hypotension with the blood pressure running 80 to 100 and therefore he was monitored in the hospital for several days. He also had an issue with his visa and remained in the hospital in total for approximately a week. The patient had the support services of [employer] due to nature of his business there in [place] and was escorted by a physician from [place] on the plane home. On the way back to [facility], the plane had a layover in [place] at which time he had chest pain. For this, he was evaluated at a [facility] and found to have normal troponins and was able to again depart to [facility] the following day again with the escort of a physician. The patient states that since returning home, he has been doing well. He has not been active as he was told he should not do anything strenous for a month. He has had a cough that has been nagging him, but he has had no fever, no chills, no shortness of breath. He notes that in one of the ambulance rides during his medical ordeal while he was out of the country, he sprained his shoulder on the left side taking off his jacket and has had a left rotator cuff injury. The patient states that he has developed chest pain today. It seems to come and go randomly. It does not seem to be associated with activity. It is along the left side of his chest. It does not radiate. He has had no shortness of breath , nausea, or diaphoresis with this. In the emergency room, Mr. Rizzo had labs which showed a normal troponin at 0.00 and an EKG which showed no evidence of ischemia and chest x-ray, which showed no acute process. PAST MEDICAL HISTORY: 1. History of coronary artery disease with cardiac cath and stent to RCA in February 28, 2018. 2. Diet-controlled diabetes. 3. Hyperlipidemia. MEDICATIONS: Medications outpatient are: 1. Metoprolol succinate 12.5 mg p.o. b.i.d. 2. Brilinta 90 mg p.o. b.i.d. 3. Aspirin 81 mg p.o. q.p.m. 4. Sildenafil 25 mg p.o. daily p.r.n. 5. Eplerenone 12.5 mg p.o. daily. 6. Atorvastatin 40 mg p.o. daily. ALLERGIES: To CIPROFLOXACIN. FAMILY HISTORY: The patient reports he had an uncle who had a bypass and related to heart valve failure at age 84 and his father had high cholesterol. SOCIAL HISTORY: No report of alcohol, tobacco, or drug use. The patient lives with his who would be his healthcare proxy. REVIEW OF SYSTEMS: A 14-point review of systems was completed with Mr. Rizzo and all those not mentioned above were negative. PHYSICAL EXAMINATION GENERAL: Mr. Rizzo is sitting in the bed. He is in no acute distress. VITAL SIGNS: Temperature 98.1, pulse rate 71, respiratory rate 18, O2 saturation 100% on room air, and blood pressure 115/72. LUNGS: Clear to auscultation bilaterally with no accessory muscle use and good aeration. HEART: S1, S2. No murmur, rub, or gallop and regular. ABDOMEN: Soft, nontender with bowel sounds positive x4. NEURO: He is alert. He is oriented x3. He moves all extremities equally. There is no facial asymmetry or focal weakness. Extraocular movements are intact. EXTREMITIES: No cyanosis or edema. SKIN: Intact. LABORATORY DATA/DIAGNOSTIC STUDIES: Sodium 138, potassium 4.3, chloride 102, serum bicarbonate 29, BUN 19, creatinine 1.07, glucose 123. Lactic acid 1.3. Troponin 0.00. WBC 8.1, hemoglobin 14.7, hematocrit 44, platelet count 195. EKG shows sinus rhythm with no evidence of ischemia and a heart rate of 70. ASSESSMENT AND PLAN: Mr. Rizzo is a 63-year-old male with a past medical history of diet-controlled diabetes and stent placement to his right coronary artery while in [place] on a business trip on February 28, 2018, who presents today to the emergency room with concern for chest discomfort, not associated with activity. Our plans are for observation in the hospital for the followin. Chest pain: The patient's first troponin is normal as well as his EKG. Plan to cycle 2 more troponins, partnered with an EKG. If the patient has any elevation of his troponin, he will go on for stress testing, but will have to remain in the hospital until Wednesday. If the patient's troponins are negative, I anticipate he would be safe to follow up with Dr. Pineda with whom he has an appointment already set for Wednesday. The patient has had a cough, which he states has been causing some severe straining with the coughing and he also has a left rotator cuff injury, so it could be that his symptoms are musculoskeletal in nature, regardless a workup will be as noted here. He will continue on all of his home medications. 2. Coronary artery disease. Continue home medications. 3. Diet-controlled diabetes. Plan: He could have a consistent carbohydrate diet. 4. Code status is full code. TIME SPENT: Approximately 60 minutes was spent on the admission of this patient , more than half of the time was spent with the patient at the bedside reviewing the events leading up to this hospitalization, performing the physical examination and reviewing the plan of care. DEBORA POSEY NP [id number] #: [id number] MTDLiv
[2018-03-18] MEDS: Metoprolol Succinate XL TAB* 25 MG PO SCH (22:05)
[2018-03-18] MEDS: Ticagrelor* 90 MG TAB PO SCH (22:07)
[2018-03-19 08:23] VITALS: BP 99/58
[2018-03-19] MEDS: Ticagrelor* 90 MG TAB PO SCH (08:31)
[2018-03-19] MEDS: Metoprolol Succinate XL TAB* 25 MG PO SCH ×2 (08:33→10:07)
[2018-03-19] MEDS ORDERED: Atorvastatin* 40 MG TAB PO SCH (09:00)
[2018-03-19] MEDS ORDERED: Aspirin 81 mg CHEW TAB* 81 MG TAB.CHEW PO SCH (09:00)
[2018-03-19] MEDS ORDERED: Metoprolol Succinate XL TAB* 25 MG PO SCH (09:00)
[2018-03-19] MEDS ORDERED: Ticagrelor* 90 MG TAB PO SCH (09:00)
--- NOTE | 2018-03-20 06:26 | DS ---
Amended report to enter cosigning physician. CC: Dr. Mon; Dr. Pineda* DISCHARGE SUMMARY: DATE OF ADMISSION: 03/18/18 DATE OF DISCHARGE: 03/18/18 PRIMARY CARE PROVIDER: Dr. Mon. STEREOPTICIAN: Dr. Pineda. ATTENDING PHYSICIAN: Dr. Michael* (dictated by Dalila Arambula NP). PRIMARY DIAGNOSIS: Chest pain. SECONDARY DIAGNOSES: 1. History of coronary artery disease with cardiac stent to the right coronary artery on 02/28/18. 2. Diet-controlled diabetes. 3. Hyperlipidemia. CONSULTATIONS WHILE IN THE HOSPITAL: No consultations. PROCEDURES WHILE IN THE HOSPITAL: No procedures. STUDIES WHILE IN THE HOSPITAL: Electrocardiogram: Sinus rhythm with no evidence of ischemia and heart rate 70. DISCHARGE MEDICATIONS: New home medications: No new home medications. Continued home medications: 1. Metoprolol succinate 12.5 mg p.o. b.i.d. 2. Brilinta 90 mg p.o. b.i.d. 3. Aspirin 81 mg p.o. q.p.m. 4. Sildenafil 25 mg p.o. daily p.r.n. 5. Eplerenone 12.5 mg p.o. daily. 6. Atorvastatin 40 mg p.o. daily. Change of home medications: No home medications change. Discontinued home medications: No home medication discontinued. HISTORY OF PRESENT ILLNESS/HOSPITAL COURSE: Mr. Rizzo is a 63-year-old male with a past medical history significant for CAD with cardiac stent to the RCA, diet- controlled diabetes, hyperlipidemia; who presented to the ED on 03/18 with complaints of chest pain. Please see the history and physical by Debora Posey for a complete summary of the events leading up to this hospitalization, but in short, the patient recently had a stent placed to the RCA on 02/28/18 while in [place] for a work trip after having some shortness of breath with exertion. He remained in the hospital after his stent for approximately a week. He was then escorted back to [place] with a physician and while in his layover in [place], he had some chest pain. He was evaluated by a [facility] and found to have normal troponins. He was discharged and departed for home. After returning home, he has been following his physician's instructions strictly. The patient then started to develop chest pain, which would come and go randomly and did not seem to be associated with activity. He reported it was on the left side of his chest and did not radiate. He also had no other associated symptoms. He does mention that while in an ambulance in [place], he believes he sustained a left shoulder injury. While in the emergency room, Mr. Rizzo had labs, which showed a normal troponin. EKG which showed no ischemic changes. Due to his chest discomfort and recent cardiac stent, he was admitted for observation. During his hospital stay, the patient has had repeat troponins, which were all negative at 0.00. In addition, he has been on telemetry and remained sinus in the 60s with occasional sinus ryan overnight. He has also remained symptom free with stable vital signs. This morning, I have called the vice president residential solar sales on- call, Dr. Galindo and discussed the patient's status. The patient already has planned followup with Dr. Pineda on 03/21/18. Therefore, it was agreed that the patient was cleared for discharge. Mr. Rizzo is stable for discharge. Vital signs as follows: Temp 97.6, HR 59, RR 16, O2 98% on room air, BP 99/58. REVIEW OF SYSTEMS: A 14-point review of system was completed and all were negative. PHYSICAL EXAMINATION: General: Mr. Rizzo is a 63-year-old male sitting in bed. He is in no acute distress. His is at the bedside. HEENT: EOMs intact. PERRLA. Oral mucosa is moist without lesions. Neck: Supple. ROM intact. No lymphadenopathy. Respiratory: Symmetrical chest expansion. No accessory muscle use. Lungs are clear to auscultation. No rhonchi, rubs, or wheezing. CV: Regular rate and rhythm. S1/S2 present. No murmurs, rubs, or gallops. Extremities: Skin is warm and smooth bilaterally. No edema. No clubbing or cyanosis. Pedal pulses 2+ bilaterally. Musculoskeletal: Full range of motion. No deformities. Abdomen: Soft, nontender to palpation. Bowel sounds x4. Neuro: Alert, awake, oriented x4. Skin: Grossly intact. DIAGNOSTIC STUDIES/LAB DATA: Labs obtained 03/18/18: Sodium 138, potassium 4.3 , chloride 102, carbon dioxide 29, BUN 19, creatinine 1.07. WBC 81, hemoglobin 14.7, hematocrit 44, platelet 149. DISCHARGE PLAN/FOLLOWUP: 1. Chest pain: The patient should follow up with Dr. Pineda as planned on 03/21/18. 2. Blood pressure: The patient has had some low readings with systolic 90s while hospitalized. I have instructed the patient to monitor and record blood pressure at home. I have discussed with the patient to change positions slowly. I have given the patient parameters on when to call vice president residential solar sales. 3. Diet-controlled diabetes. The patient should continue diet control. 4. Hyperlipidemia. The patient is to continue atorvastatin as previously prescribed. 5. Education: The patient was educated on returning to the emergency department/call 911 if any return of symptoms. This is a summarized report of a complex medical history and hospital stay. For further details, please see the entire medical record. I have discussed this plan with my attending, Dr. Michael, who agreed with my plan. TIME SPENT: Approximately 30 minutes were spent on this discharge, greater than half that time was spent [id number] with the patient discussing the discharge plans and instructions. DALILA ARAMBULA, KADEEM [id number]/CPS #: [id number] RUFINA
== END 2018-03-19 10:33 | disposition home or self-care (01) ==
LOC: ED 12:52 → MEDTELE 15:41
PROVIDERS: ADMIT Internal Medicine; ATTEND Student in an Organized Health Care Education/Training Program
DX: R07.9 Chest pain, unspecified (principal); I25.10 Atherosclerotic heart disease of native coronary artery without angina pectoris; E78.5 Hyperlipidemia, unspecified; Z95.5 Presence of coronary angioplasty implant and graft; Z79.82 Long term (current) use of aspirin
CPT/HCPCS: 36415; 71045; 80053; 83605; 83880; 84484; 85025; 85610; 93005; 99284; A9270-GY; G0378

== ENCOUNTER 2018-07-01 09:19 | Emergency (ER) | payer OTHER ==
--- NOTE | 2018-07-01 09:59 | ED ---
HPI Chest Pain - HPI Summary HPI Summary: This patient is a 63 year old M presenting to [facility] accompanied by his with a chief complaint of intermittent chest pain since 2 days ago. The patient notes that the pain started in his sternum and left anterior chest and was aggravated by eating. Patient notes his symptoms were not aggravated by exertion The patient reports he thought it was acid reflux. The patient reports that the symptoms resolved 1 day ago but since 08:00 this morning he has had tightness in his right anterior chest. The patient rates the pain 1/10 in severity. Symptoms aggravated by nothing. Symptoms alleviated by nothing. Patient denies SOB or N/V/D. Patient had an ME in February and had a stent placed. The patient notes that the symptom of his previous ME was SOB. Patient notes he takes a blood thinner, a beta faye, and ASA. - History of Current Complaint Chief Complaint: EDChestPainROMI Time Seen by Provider: 07/01/18 09:31 Hx Obtained From: Patient Onset/Duration: Started Days Ago - 2 days ago, Atraumatic, Still Present Timing: Intermittent, Lasting Hours Initial Severity: Mild Current Severity: Mild Pain Intensity: 1 Pain Scale Used: 0-10 Numeric Chest Pain Location: Right Anterior Chest Pain Radiates: No Character: Tightness Aggravating Factor(s): Nothing Alleviating Factor(s): Nothing Associated Signs and Symptoms: Positive: Chest Pain. Negative: Shortness of Breath, Nausea, Vomiting - Allergy/Home Medications Allergies/Adverse Reactions: Allergies Allergy/AdvReac Type Severity Reaction Status Date / Time ciprofloxacin Allergy Intermediate Nausea Verified 07/01/18 09:22 Home Medications: Home Medications Rosuvastatin Calcium [Crestor] 40 mg PO DAILY 07/01/18 [History Confirmed ] PMH/Surg Hx/FS Hx/Imm Hx Endocrine/Hematology History: Reports: Hx Diabetes - diet controlled Cardiovascular History: Reports: Hx Angina, Hx Angioplasty - 02/28/2018 1 stent done in [place], [place], Hx Coronary Artery Disease, Hx Hypercholesterolemia, Hx Myocardial Infarction Denies: Hx Cardiac Arrest, Hx Hypertension, Hx Valvular Heart Disease Respiratory History: Denies: Hx Asthma, Hx Chronic Obstructive Pulmonary Disease (COPD) History: Reports: Hx Benign Prostatic Hyperplasia, Other Problems/ Disorders - Urethral strictures Sensory History: Reports: Hx Contacts or Glasses - for reading Denies: Hx Hearing Aid Opthamlomology History: Reports: Hx Contacts or Glasses - for reading Neurological History: Denies: Hx Dementia - Surgical History Surgery Procedure, Year, and Place: TURP with f/u cauterization - Immunization History Date of Tetanus Vaccine: Unsure Date of Influenza Vaccine: UTD Infectious Disease History: No Infectious Disease History: Denies: Hx Clostridium Difficile, Hx Hepatitis, Hx Human Immunodeficiency Virus (HIV), Hx of Known/Suspected MRSA, Hx Shingles, Hx Tuberculosis, History Other Infectious Disease, Traveled Outside the [place] in Last 30 Days - Family History Known Family History: Positive: Cardiac Disease - Father, Other - Leukemia ( Mother) - Social History Alcohol Use: None Alcohol Amount: an ounce daily Hx Substance Use: No Substance Use Type: Reports: None Hx Tobacco Use: No Smoking Status (MU): Never Smoked Tobacco Have You Smoked in the Last Year: No Review of Systems Negative: Fever Negative: Epistaxis Positive: Chest Pain Negative: Shortness Of Breath Negative: Vomiting, Diarrhea, Nausea Negative: Headache All Other Systems Reviewed And Are Negative: Yes Physical Exam - Summary Physical Exam Summary: VITAL SIGNS: Reviewed. GENERAL: Patient is a well-developed and nourished MALE who is lying comfortable in the stretcher. Patient is not in any acute respiratory distress. HEAD AND FACE: No signs of trauma. No ecchymosis, hematomas or skull depressions. No sinus tenderness. EYES: PERRLA, EOMI x 2, No injected conjunctiva, no nystagmus. EARS: Hearing grossly intact. Ear canals and tympanic membranes are within normal limits. MOUTH: Oropharynx within normal limits. NECK: Supple, trachea is midline, no adenopathy, no JVD, no carotid bruit, no c- spine tenderness, neck with full ROM. CHEST: Symmetric, no tenderness at palpation LUNGS: Clear to auscultation bilaterally. No wheezing or crackles. CVS: Regular rate and rhythm, S1 and S2 present, no murmurs or gallops appreciated. ABDOMEN: Soft, non-tender. No signs of distention. No rebound no guarding, and no masses palpated. Bowel sounds are normal. EXTREMITIES: FROM in all major joints, no edema, no cyanosis or clubbing. NEURO: Alert and oriented x 3. No acute neurological deficits. Speech is normal and follows commands. SKIN: Dry and warm Triage Information Reviewed: Yes Vital Signs On Initial Exam: Initial Vitals Temp Pulse Resp BP Pulse Ox 98 F 66 14 130/80 99 07/01/18 09:22 07/01/18 09:22 07/01/18 09:22 07/01/18 09:22 07/01/18 09:22 Vital Signs Reviewed: Yes Diagnostics - Vital Signs Vital Signs Temp Pulse Resp BP Pulse Ox 07/01/18 09:50 99 07/01/18 09:39 61 123/74 99 07/01/18 09:38 60 99 07/01/18 09:22 98 F 66 14 130/80 99 - Laboratory Result Diagrams: 07/01/18 10:31 07/01/18 10:31 Lab Statement: Any lab studies that have been ordered have been reviewed, and results considered in the medical decision making process. - Radiology CXR Radiology Interpretation Completed By: Radiologist Summary of Radiographic Findings: no evidence for acute disease. Dr. Ellis has reviewed this report. - EKG 09:36 Cardiac Rate: NL - at 61 bpm EKG Rhythm: Sinus Rhythm ST Segment: Normal Summary of EKG Findings: EKG reveals sinus rhythm at [address] elevations. Re-Evaluation - Re-Evaluation First Eval Re-Evaluation Time: 13:44 Comment: Discussed discharge plan with patient who is agreeable to discharge Chest Pain Course/Dx - Course Assessment/Plan: This patient is a 63-year-old male who presents to the emergency department with chief complaint of chest pain. Test results without any significant abnormality except for the potassium level is 5.3, BUN is 25 glucose 125 and troponin is 0.00. Therefore believe the patient is slightly dehydrated. Chest x-ray impression: No evidence for acute disease. 2 troponins 4 hours apart is 0.00. Therefore I have a low suspicion to have an acute coronary syndrome. However the patient will be discharged home and asked to follow with the primary care physician as well as the patients doggy daycare activities director. Since the patients pain is subsided and the patient is feeling better the patient was discharged home to follow-up with PCP. The heart to score is 3. I discussed all the findings and test results with the patient. Patient was instructed to return to the emergency room immediately if any of the symptoms return worsens. Plan of care was discussed with the patient and understands and agrees. All questions were answered at patient satisfaction. There were no further complaints or concerns. Lung exam before discharge: CTA B/ L. Good air exchange. No wheezing or crackles heard. CVS: S1 and S2 present. No murmurs appreciated. Patient is alert and oriented x 3. Patient is hemodynamically stable. Patient will be discharged home with follow up PCP in the next 2-3 days - Chest Pain Differential Diagnosis/HQI/PQRI: Acute ME, ACS, Angina, Aortic Aneurysm, CHF, Chest Wall, GI Disease, Lower Respiratory Infection - Diagnoses Provider Diagnoses: Atypical chest pain Discharge - Sign-Out/Discharge Documenting (check all that apply): Patient Departure - Discharge Patient Received Moderate/Deep Sedation with Procedure: No - Discharge Plan Condition: Stable Disposition: HOME Patient Education Materials: Chest Pain (ED) Referrals: David Mon MD [Primary Care Provider] - 2 Days Additional Instructions: Follow up with your primary care provider in 2-3 days. Return to the Emergency Department for new or worsening symptoms. - Billing Disposition and Condition Condition: STABLE Disposition: Home - Attestation Statements Document Initiated by Sumayaibe: Yes Documenting Scribe: Shruti Dubon Provider For Whom Chucky is Documenting (Include Credential): Tesfaye Ellis MD Scribe Attestation: Shruti Smith scribed for Tesfaye Ellis MD on 07/01/18 at 1615. Scribe Documentation Reviewed: Yes Provider Attestation: The documentation as recorded by the sumayaibShruti johnson accurately reflects the service I personally performed and the decisions made by Tesfaye patel MD Status of Scribe Document: Viewed
[2018-07-01 10:41] LABS: ABS Basophils 0.1 10^3/ul (0-0.2); ABS Eosinophils 0.1 10^3/ul (0-0.6); ABS Lymphocytes 1.2 10^3/ul (1.0-4.8); ABS Monocytes 0.6 10^3/ul (0-0.8); ABS Neutrophils 3.1 10^3/ul (1.5-7.7); ABS Nucleated RBC 0 10^3/ul; Eosinophil % 2.7 %; Hematocrit 47 % (36-46); Hemoglobin 15.8 g/dL (14.0-18.0); Mean Corpuscular HGB Conc 34 g/dL (31-36); Mean Corpuscular Hemoglobin 31 pg (27-31); Mean Corpuscular Volume 91 fL (80-94); Mean Platelet Volume 9.4 fL (7.4-10.4); Nucleated Red Blood Cells % 0.1; Platelet Count 153 10^3/uL (150-450); Red Blood Count 5.16 10^6 /uL (4.18-5.48); Red Cell Distribution Width 14 % (10.5-15); White Blood Count 5.1 10^3/uL (3.5-10.8)
[2018-07-01 11:03] LABS: Albumin 4.5 g/dL (3.2-5.2); Albumin/Globulin Ratio 1.6 (1-3); BUN/Creatinine Ratio 22.5 (8-20); Calcium 10.3 mg/dL (8.6-10.3); EGFR African American 80.4 (>60); EGFR Non-African American 66.5 (>60); Globulin 2.9 g/dL (2-4); Magnesium 2.2 mg/dL (1.9-2.7); Total Bilirubin 0.6 mg/dL (0.2-1.0); Total Protein 7.4 g/dL (6.4-8.9)
[2018-07-01 11:05] LABS: Potassium 5.3 mmol/L (3.5-5.0)
[2018-07-01 11:06] LABS: CKMB ng/mL 2.6 ng/mL (0.6-6.3)
[2018-07-01 11:09] LABS: Activated Partial Thrombo Time 30.9 seconds (26.0-36.3); INR 0.9 (0.77-1.02)
[2018-07-01 11:56] LABS: TSH (Thyroid Stimulating Horm) 2.95 mcIU/mL (0.34-5.60)
[2018-07-01] MEDS ORDERED: NS 0.9% 1000 ML** 1,000 ML IV ONE (13:13)
[2018-07-01 14:18] VITALS: BP 104/68
== END 2018-07-01 14:18 | disposition home or self-care (01) ==
LOC: ED 09:19
DX: R07.89 Other chest pain (principal); I10 Essential (primary) hypertension; I38 Endocarditis, valve unspecified; I25.10 Atherosclerotic heart disease of native coronary artery without angina pectoris; E11.9 Type 2 diabetes mellitus without complications; Z88.3 Allergy status to other anti-infective agents; Z95.5 Presence of coronary angioplasty implant and graft
CPT/HCPCS: 36415; 71045; 80053; 82550; 82553; 83605; 83735; 83880; 84443; 84484; 85025; 85610; 85730; 93005; 96360; 99283

== ENCOUNTER 2018-08-17 21:28 | Emergency (ER) | payer OTHER ==
--- NOTE | 2018-08-17 21:49 | ED ---
HPI Chest Pain - HPI Summary HPI Summary: A 63 y/o M presents to ED c/o mid-sternal CP onset tonight after dinner [employer]END [employer]EL[employer]. He took his BP which was 150 systolic, which is very high for him. For the last few days, hes had SOB with mild exertion, such as going up a stair case. Aggravating factors: deep inhalation. During his first heart attack in Feb 2018 , he did not have CP, but was having SOB carrying his suitcase. Patient was in [place] at that time and had a stent placed. He had some CP sx again and went to the hospital in [place]. Since he's been back in the , he sees Dr. Pineda, cardio, locally. Last week, Dr. Pineda reduced his beta-faye dosage. He also sees Dr. Cervantes, GI for GERD. ED provider spoke with Dr. Mon, PCP, about patient, prior to patient's arrival. - History of Current Complaint Chief Complaint: EDChestPainROMI Hx Obtained From: Patient Onset/Duration: Started Hours Ago, Atraumatic, Still Present Timing: Constant Initial Severity: Mild Current Severity: Mild Pain Intensity: 1 Pain Scale Used: 0-10 Numeric Chest Pain Location: Mid Sternal Aggravating Factor(s): Deep Breaths Associated Signs and Symptoms: Positive: Shortness of Breath, Other: - pos: elevated BP - Allergy/Home Medications Allergies/Adverse Reactions: Allergies Allergy/AdvReac Type Severity Reaction Status Date / Time ciprofloxacin Allergy Intermediate Nausea Verified 08/17/18 21:40 rosuvastatin Allergy Unknown Verified 08/17/18 21:40 Reaction Details PMH/Surg Hx/FS Hx/Imm Hx Previously Healthy: No Endocrine/Hematology History: Reports: Hx Diabetes - diet controlled Cardiovascular History: Reports: Hx Angina, Hx Angioplasty - 02/28/2018 1 stent done in [facility], Hx Coronary Artery Disease, Hx Hypercholesterolemia, Hx Myocardial Infarction Denies: Hx Cardiac Arrest, Hx Hypertension, Hx Valvular Heart Disease Respiratory History: Denies: Hx Asthma, Hx Chronic Obstructive Pulmonary Disease (COPD) History: Reports: Hx Benign Prostatic Hyperplasia, Other Problems/ Disorders - Urethral strictures Sensory History: Reports: Hx Contacts or Glasses - for reading Denies: Hx Hearing Aid Opthamlomology History: Reports: Hx Contacts or Glasses - for reading Neurological History: Denies: Hx Dementia - Surgical History Surgery Procedure, Year, and Place: TURP with f/u cauterization - Immunization History Date of Tetanus Vaccine: Unsure Date of Influenza Vaccine: UTD Infectious Disease History: No Infectious Disease History: Denies: Hx Clostridium Difficile, Hx Hepatitis, Hx Human Immunodeficiency Virus (HIV), Hx of Known/Suspected MRSA, Hx Shingles, Hx Tuberculosis, History Other Infectious Disease, Traveled Outside the [place] in Last 30 Days - Family History Known Family History: Positive: Cardiac Disease - Father, Other - Leukemia ( Mother) - Social History Occupation: Employed Full-time Lives: With Family Alcohol Use: None Alcohol Amount: an ounce daily Hx Substance Use: No Substance Use Type: Reports: None Hx Tobacco Use: No Smoking Status (MU): Never Smoked Tobacco Have You Smoked in the Last Year: No Review of Systems Positive: Chest Pain, Other - pos: elevated BP Positive: Shortness Of Breath All Other Systems Reviewed And Are Negative: Yes Physical Exam - Summary Physical Exam Summary: Appearance: Well-appearing, Well-nourished, lying in bed comfortably Skin: Warm, dry, no obvious rash Eyes: sclera anicteric, no conjunctival pallor ENT: mucous membranes moist, pharynx appears normal Neck: Supple, nontender Respiratory: Clear to auscultation, no signs of respiratory distress Cardiovascular: Normal S1, S2. No murmurs. Normal distal pulses in tibial and radial bilaterally. Abdomen: Soft, nontender, normal active bowel sounds present Musculoskeletal: Normal, Strength/ROM Intact Neurological: A&Ox3, awake and alert, mentation is normal, speech is fluent and appropriate Psychiatric: affect is normal, does not appear anxious or depressed Triage Information Reviewed: Yes Vital Signs On Initial Exam: Initial Vitals Temp Pulse Resp BP Pulse Ox 98.6 F 72 16 147/88 97 08/17/18 21:37 08/17/18 21:37 08/17/18 21:37 08/17/18 21:37 08/17/18 21:37 Vital Signs Reviewed: Yes Diagnostics - Vital Signs Vital Signs Temp Pulse Resp BP Pulse Ox 08/17/18 21:37 98.6 F 72 16 147/88 97 - Laboratory Result Diagrams: 08/17/18 22:42 08/17/18 22:42 Lab Statement: Any lab studies that have been ordered have been reviewed, and results considered in the medical decision making process. - EKG 2125 Cardiac Rate: NL - 67 bpm EKG Rhythm: Sinus Rhythm Summary of EKG Findings: NSR at 67 BPM, P waves, QRS complex, and T waves are within normal limits, T waves and intervals are normal, no ischemic changes. Re-Evaluation - Re-Evaluation 1 Re-Evaluation Time: 00:44 Change: Improved Comment: Discussing results with patient, including unchanged troponin of 0.00. Will discharge patient, he is agreeable to this. Chest Pain Course/Dx - Course Course Of Treatment: Pt is a 63 y/o M presenting with mid-sternal CP onset tonight after dinner. Associated sx: elevated BP, SOB with minimal exertion. In Feb 2018, patient had PA in [place]; he did not have CP, but was having SOB carrying his suitcase that time. He sees Dr. Pineda cardio, locally. Last week , Dr. Pineda reduced his beta-faye dosage. He also sees Dr. Cervantes GI for GERD. Lab work is without significant abnormality, except platelets: 138, AST: 138, ALT: 242. Repeat troponin is unchanged at 0.00. EKG shows NSR at 67 BPM, P waves, QRS complex, and T waves are within normal limits, T waves and intervals are normal, no ischemic changes. Will discharge patient home to f/u with william Myrick, tomorrow. - Diagnoses Provider Diagnoses: Dyspnea Discharge - Sign-Out/Discharge Documenting (check all that apply): Patient Departure - D/C Patient Received Moderate/Deep Sedation with Procedure: No - Discharge Plan Condition: Good Disposition: HOME Patient Education Materials: Dyspnea (ED) Referrals: Jake Pineda MD [Medical Doctor] - 1 Day David Mon MD [Primary Care Provider] - - Billing Disposition and Condition Condition: GOOD Disposition: Home - Attestation Statements Document Initiated by Scribe: Yes Documenting Scribe: Sangeeta Barrios Provider For Whom Scribe is Documenting (Include Credential): Dr. Faraz Duong MD Scribe Attestation: Sangeeta Smith scribed for Dr. Faraz Duong MD on 08/18/18 at 0313. Scribe Documentation Reviewed: Yes Provider Attestation: The documentation as recorded by the scribe, Sangeeta Barrios accurately reflects the service I personally performed and the decisions made by me, Dr. Faraz Duong MD Status of Scribe Document: Viewed
[2018-08-17 22:49] LABS: ABS Eosinophils 0.2 10^3/ul (0-0.6); ABS Lymphocytes 1.4 10^3/ul (1.0-4.8); ABS Monocytes 0.8 10^3/ul (0-0.8); ABS Neutrophils 3.5 10^3/ul (1.5-7.7); Eosinophil % 3.7 %; Hematocrit 45 % (42-52); Lymphocyte % 23.7 %; Mean Corpuscular HGB Conc 33 g/dL (31-36); Mean Corpuscular Hemoglobin 30 pg (27-31); Mean Corpuscular Volume 91 fL (80-94); Mean Platelet Volume 9.2 fL (7.4-10.4); Nucleated Red Blood Cells % 0.1; Platelet Count 138 10^3/uL (150-450); Red Blood Count 4.96 10^6 /uL (4.18-5.48); Red Cell Distribution Width 14 % (10.5-15); White Blood Count 5.9 10^3/uL (3.5-10.8)
[2018-08-17 23:08] LABS: Albumin 4.2 g/dL (3.2-5.2); Albumin/Globulin Ratio 1.6 (1-3); BUN/Creatinine Ratio 14.8 (8-20); Calcium 9.8 mg/dL (8.6-10.3); EGFR African American 77.2 (>60); EGFR Non-African American 63.8 (>60); Globulin 2.6 g/dL (2-4); Potassium 4.1 mmol/L (3.5-5.0); Total Bilirubin 0.7 mg/dL (0.2-1.0); Total Protein 6.8 g/dL (6.4-8.9)
[2018-08-18 00:53] VITALS: BP 133/83
== END 2018-08-18 00:43 | disposition home or self-care (01) ==
LOC: ED 21:28
DX: R07.89 Other chest pain (principal); R06.02 Shortness of breath; R06.00 Dyspnea, unspecified
CPT/HCPCS: 36415; 80053; 84484; 85025; 93005; 99283

== ENCOUNTER 2019-02-21 22:17 | Emergency (ER) | payer OTHER ==
--- OUTSIDE RECORDS SUMMARY | 2019-02-21 22:34 | XMS REPORT | Continuity of Care Document ---
:1955 External Reference #:[id number] Author Name Jake Pineda M.D. (transmitted by agent of provider Theresa Benitez ) Address [address] [place] [address] Care Team Providers Name Role Phone David Mon MD - Family Care Team Information User Experience Researcher [phone] Medicine Alan Aviles MD - Endocrinology, Care Team Information User Experience Researcher [phone] Diabetes & Metabolism Problems Active Problems Provider Date Stented coronary artery Juan Cervantes MD Onset: 02/28/2018 Note: in [place] Type 2 diabetes mellitus Juan Cervantes MD Onset: 08/12/2015 Note: seeing Dr Aviles May 2018 Syncope and collapse Juan Cervantes MD Onset: 01/11/2013 Note: unknown syncope resulted in subdural hematoma; 08/08/18 out pt cardiology f/u directed towards low BP tendency; Atypical chest pain Juan Cervantes MD Onset: 01/22/2018 Note: Dr Mon stopped pantoprazole 02/2218 which had been started in [place] / [place] Social History Type Date Description Comments Sex Unknown Tobacco Use Start: Unknown Never Smoked Cigarettes Smoking Status Reviewed: 01/25/19 Never Smoked Cigarettes ETOH Use Denies alcohol use Tobacco Use Start: Unknown Patient has never smoked Recreational Drug Use Denies Drug Use Exercise Type/Frequency Exercises regularly 3 days of eliptical and 15mins machine Allergies, Adverse Reactions, Alerts Active Allergies Reaction Severity Comments Date Cipro dizziness, nausea flu-like aches 11/26/2011 Rosuvastatin memory changes 07/06/2018 Anthracyclines 01/25/2019 Medications Active Medications SIG Qnty Indications Ordering Provider Date Pantoprazole Sodium 1 by mouth 14tabs Jake Golden 09/28/2018 40mg every day Giancarlo Pineda Tablets Coq10 1 by mouth 90caps Jake Golden 04/28/2018 200mg Capsules every day Giancarlo Pineda Aspirin Adult Low Dose 1 by mouth 100tabs Jake Golden 03/21/2018 every day Giancarlo Pineda 81mg Tablets DR Benitez 1 tab by mouth Unknown 90mg Tablets twice a day Metoprolol Succinate 1/2 tab twice Unknown ER daily 25mg Tablets ER 24HR Repatha Sureclick sc [id number] Unknown 140mg/ml Solution Auto-Inject Rosuvastatin Calcium take 1 tablet 90tabs Jake Golden 10mg by mouth once Giancarlo Pineda Tablets daily History Medications Crestor 1 by mouth 30tabs Jake Golden 08/26/2018 - 10mg Tablets every day Giancarlo Pineda 08/30/2018 Pantoprazole Sodium 1 by mouth 30units Jake Golden 08/26/2018 - 40mg every day Giancarlo Pineda 09/28/2018 Solution Rec Immunizations CPT Code Status Date Vaccine Lot # [id number] Given 12/09/2011 Fluzone Vaccine [id number] Vital Signs Date Vital Result Comment 01/25/2019 2:22pm Height 68 inches 5'8" Weight 131.75 lb with shoes Heart Rate 66 /min radial,regular BP Systolic Sitting 112 mmHg LA, reg cuff BP Diastolic Sitting 70 mmHg LA, reg cuff BP Systolic Standing 102 mmHg LA, reg cuff BP Diastolic Standing 68 mmHg LA, reg cuff BMI (Body Mass Index) 20.0 kg/m2 Ejection Fraction 68% Echo 02/28/18 10/19/2018 1:12pm Height 68 inches 5'8" Weight 129.00 lb shoes Heart Rate 64 /min BP Systolic Sitting 103 mmHg BP Diastolic Sitting 68 mmHg BMI (Body Mass Index) 19.6 kg/m2 Results Test Acquired Date Facility Test Result H/L Range Note Lipid Panel - 12/23/2018 [facility] Creatine 109 U/L Normal 10 -223 [address] [address] Kinase(CK) [place], [place] [id number] [phone] Comp Metabolic 12/23/2018 [facility] Sodium 141 mmol/L Normal 135-145 Panel [address] [place] [address] [phone] Potassium 4.3 mmol/L Normal 3.5-5.0 Chloride 110 mmol/L Normal 101-111 Co2 Carbon Dioxide 28 mmol/L Normal 22-32 Anion Gap 3 mmol/L Normal 2-11 Glucose 120 mg/dL High 70-100 Blood Urea Nitrogen 25 mg/dL High 6-24 Creatinine 0.97 mg/dL Normal 0.67-1.17 BUN/Creatinine Ratio 25.8 High 8-20 Calcium 9.3 mg/dL Normal 8.6-10.3 Total Protein 6.3 g/dL Low 6.4-8.9 Albumin 4.2 g/dL Normal 3.2-5.2 Globulin 2.1 g/dL Normal 2-4 Albumin/Globulin Ratio 2.0 Normal 1-3 Total Bilirubin 0.50 mg/dL Normal 0.2-1.0 Alkaline Phosphatase 50 U/L Normal 34-104 Alt 29 U/L Normal 7-52 Ast 21 U/L Normal 13-39 Egfr Non- 77.7 >60 Egfr 94.0 >60 2 Lipid Profile 12/23/2018 [facility] Triglycerides 39 mg/dL 3 (Trig/Chol/HDL) [address] [place] [address] [phone] Cholesterol 102 mg/dL 4 HDL Cholesterol 46.5 mg/dL 5 LDL Cholesterol 48 mg/dL 6 Laboratory test 12/23/2018 [facility] Hemoglobin A1c 6.5 % High 4.0-5.6 7 finding 101 (Glyco HGB) [place] [address] [phone] Lipid Panel - 10/14/2018 [facility] Creatine 175 U/L Normal 10 -223 JFM [address] Kinase(CK) [place] [address] [phone] Comp Metabolic 10/14/2018 [facility] Sodium 140 Normal 135- [address] mmol/[place] [address] [phone] Potassium 4.3 mmol/L Normal 3.5-5.0 Chloride 107 mmol/L Normal 101-111 Co2 Carbon Dioxide 28 mmol/L Normal 22-32 Anion Gap 5 mmol/L Normal 2-11 Glucose 117 mg/dL High 70-100 Blood Urea Nitrogen 28 mg/dL High 6-24 Creatinine 1.05 mg/dL Normal 0.67-1.17 BUN/Creatinine Ratio 26.7 High 8-20 Calcium 9.4 mg/dL Normal 8.6-10.3 Total Protein 6.2 g/dL Low 6.4-8.9 Albumin 4.1 g/dL Normal 3.2-5.2 Globulin 2.1 g/dL Normal 2-4 Albumin/Globulin Ratio 2.0 Normal 1-3 Total Bilirubin 0.80 mg/dL Normal 0.2-1.0 Alkaline Phosphatase 52 U/L Normal 34-104 Alt 44 U/L Normal 7-52 Ast 25 U/L Normal 13-39 Egfr Non- 70.9 >60 Egfr 85.8 >60 8 Lipid Profile 10/14/2018 [facility] Triglycerides 39 mg/dL 9 (Trig/Chol/HDL) [address] [place] [address] [phone] Cholesterol 113 mg/dL 10 HDL Cholesterol 47.6 mg/dL 11 LDL Cholesterol 58 mg/dL 12 Lipid Panel - 09/21/2018 [facility] Creatine 143 U/L Normal 10 -223 [address] [address] Kinase(CK) [place] [address] [phone] Comp Metabolic 09/21/2018 [facility] Sodium 141 Normal 135- [address] mmol/[place] [address] [phone] Potassium 4.2 mmol/L Normal 3.5-5.0 Chloride 106 mmol/L Normal 101-111 Co2 Carbon Dioxide 28 mmol/L Normal 22-32 Anion Gap 7 mmol/L Normal 2-11 Glucose 105 mg/dL High 70-100 Blood Urea Nitrogen 25 mg/dL High 6-24 Creatinine 1.17 mg/dL Normal 0.67-1.17 BUN/Creatinine Ratio 21.4 High 8-20 Calcium 9.7 mg/dL Normal 8.6-10.3 Total Protein 6.5 g/dL Normal 6.4-8.9 Albumin 4.3 g/dL Normal 3.2-5.2 Globulin 2.2 g/dL Normal 2-4 Albumin/Globulin Ratio 2.0 Normal 1-3 Total Bilirubin 0.90 mg/dL Normal 0.2-1.0 Alkaline Phosphatase 55 U/L Normal 34-104 Alt 38 U/L Normal 7-52 Ast 25 U/L Normal 13-39 Egfr Non- 62.6 >60 Egfr 75.7 >60 14 Lipid Profile 09/21/2018 [facility] Triglycerides 48 mg/dL 15 (Trig/Chol/HDL) [address] [place] [address] [phone] Cholesterol 125 mg/dL 16 HDL Cholesterol 47.1 mg/dL 17 LDL Cholesterol 68 mg/dL 18 Lipid Panel - 09/21/2018 [facility] Creatine 143 U/L Normal 10 -223 [address] [address] Kinase(CK) [place] [address] [phone] Comp Metabolic 09/21/2018 [facility] Sodium 141 Normal 135- [address] mmol/[place] [address] [phone] Potassium 4.2 mmol/L Normal 3.5-5.0 Chloride 106 mmol/L Normal 101-111 Co2 Carbon Dioxide 28 mmol/L Normal 22-32 Anion Gap 7 mmol/L Normal 2-11 Glucose 105 mg/dL High 70-100 Blood Urea Nitrogen 25 mg/dL High 6-24 Creatinine 1.17 mg/dL Normal 0.67-1.17 BUN/Creatinine Ratio 21.4 High 8-20 Calcium 9.7 mg/dL Normal 8.6-10.3 Total Protein 6.5 g/dL Normal 6.4-8.9 Albumin 4.3 g/dL Normal 3.2-5.2 Globulin 2.2 g/dL Normal 2-4 Albumin/Globulin Ratio 2.0 Normal 1-3 Total Bilirubin 0.90 mg/dL Normal 0.2-1.0 Alkaline Phosphatase 55 U/L Normal 34-104 Alt 38 U/L Normal 7-52 Ast 25 U/L Normal 13-39 Egfr Non- 62.6 >60 Egfr 75.7 >60 20 Lipid Profile 09/21/2018 [facility] Triglycerides 48 mg/dL 21 (Trig/Chol/HDL) [address] [place] [address] [phone] Cholesterol 125 mg/dL 22 HDL Cholesterol 47.1 mg/dL 23 LDL Cholesterol 68 mg/dL 24 Laboratory test 09/02/2018 [facility] Clotest SEE RESULT [address] [place] [address] [phone] Laboratory test 09/02/2018 [facility] Lipase 17 U/L Normal 11.0-[address] 2.0 [place] [address] [phone] Creatine Kinase(CK) 164 U/L Normal 10-223 C Reactive Protein < 1.00 mg/L Normal <8.01 Troponin I 0.00 ng/mL <0.04 26 Aldolase 6.2 U/L <7.7 27 Liver Function 09/02/2018 [facility] Total Protein 6.3 g/dL Low 6.4-8.[address] [place] [address] [phone] Albumin 3.8 g/dL Normal 3.2-5.2 Globulin 2.5 g/dL Normal 2-4 Albumin/Globulin Ratio 1.5 Normal 1-3 Total Bilirubin 1.10 mg/dL High 0.2-1.0 Direct Bilirubin 0.20 mg/dL High 0.03-0.18 Indirect Bilirubin 0.9 mg/dL Normal 0.3-1.0 Alkaline Phosphatase 50 U/L Normal 34-104 Alt 52 U/L Normal 7-52 Ast 29 U/L Normal 13-39 Lipid Profile 09/02/2018 [facility] Triglycerides 45 mg/dL 28 (Trig/Chol/HDL) [address] [place] [address] [phone] Cholesterol 124 mg/dL 29 HDL Cholesterol 40.8 mg/dL 30 LDL Cholesterol 74 mg/dL 31 CBC No Diff 09/02/2018 [facility] White Blood 4.2 10^3/uL Normal 3.5-10.[address] [place] [address] [phone] Red Blood Count 4.60 10^6/uL Normal 4.18-5.48 Hemoglobin 13.9 g/dL Low 14.0-18.0 Hematocrit 42 % Normal 42-52 Mean Corpuscular Volume 91 fL Normal 80-94 Mean Corpuscular Hemoglobin 30 pg Normal 27-31 Mean Corpuscular HGB Conc 33 g/dL Normal 31-36 Red Cell Distribution Width 14 % Normal 10-15 Platelet Count 125 10^3/uL Low 150-450 Mean Platelet Volume 9.5 fL Normal 7.4-10.4 Comp Metabolic 08/27/2018 [facility] Sodium 138 mmol/L Normal 135-[address] [place] [address] [phone] Potassium 4.4 mmol/L Normal 3.5-5.0 Chloride 103 mmol/L Normal 101-111 Co2 Carbon Dioxide 28 mmol/L Normal 22-32 Anion Gap 7 mmol/L Normal 2-11 Glucose 110 mg/dL High 70-100 Blood Urea Nitrogen 25 mg/dL High 6-24 Creatinine 1.19 mg/dL High 0.67-1.17 BUN/Creatinine Ratio 21.0 High 8-20 Calcium 9.7 mg/dL Normal 8.6-10.3 Total Protein 6.3 g/dL Low 6.4-8.9 Albumin 4.2 g/dL Normal 3.2-5.2 Globulin 2.1 g/dL Normal 2-4 Albumin/Globulin Ratio 2.0 Normal 1-3 Total Bilirubin 0.90 mg/dL Normal 0.2-1.0 Alkaline Phosphatase 67 U/L Normal 34-104 Alt 95 U/L High 7-52 Ast 45 U/L High 13-39 Egfr Non- 61.4 >60 Egfr 74.2 >60 32 Laboratory test 08/27/2018 [facility] Creatine 180 U/L Normal 10-223 [address] Kinase(CK) [place] [address] [phone] CBC Auto Diff 08/17/2018 [facility] White Blood 5.7 Normal 3.5 -10.[address] Count 10^3/[place] [address] [phone] Red Blood Count 4.88 10^6/uL Normal 4.18-5.48 Hemoglobin 14.8 g/dL Normal 14.0-18.0 Hematocrit 44 % Normal 42-52 Mean Corpuscular Volume 91 fL Normal 80-94 Mean Corpuscular Hemoglobin 30 pg Normal 27-31 Mean Corpuscular HGB Conc 34 g/dL Normal 31-36 Red Cell Distribution Width 14 % Normal 10.5-15 Platelet Count 119 10^3/uL Low 150-450 Mean Platelet Volume 9.7 fL Normal 7.4-10.4 Abs Neutrophils 3.2 10^3/uL Normal 1.5-7.7 Abs Lymphocytes 1.4 10^3/uL Normal 1.0-4.8 Abs Monocytes 0.9 10^3/uL High 0-0.8 Abs Eosinophils 0.2 10^3/uL Normal 0-0.6 Abs Basophils 0.0 10^3/uL Normal 0-0.2 Abs Nucleated RBC 0.0 10^3/uL Granulocyte % 56.3 % Lymphocyte % 25.1 % Monocyte % 14.9 % Eosinophil % 3.3 % Basophil % 0.4 % Nucleated Red Blood Cells % 0.0 Lipid Panel - 08/17/2018 [facility] Creatine 646 U/L High 10- 223 J[facility] Kinase(CK) [place] [address] [phone] Lipid Profile 08/16/2018 [facility] Triglycerides 56 mg/dL 34 (Trig/Chol/HD DRIVE L) [place] [address] [phone] Cholesterol 75 mg/dL 35 HDL Cholesterol 30.8 mg/dL 36 LDL Cholesterol 33 mg/dL 37 Laboratory test 08/16/2018 [facility] C-Peptide 2.0 ng/mL 1.1 - 4.4 38 [place] [address] [phone] Insulin Level 5.1 mcIU/mL Normal 2.0-16.0 Comp Metabolic 08/16/2018 [facility] Sodium 141 mmol/L Normal 135-145 Panel [address] [place] [address] [phone] Potassium 4.1 mmol/L Normal 3.5-5.0 Chloride 106 mmol/L Normal 101-111 Co2 Carbon Dioxide 27 mmol/L Normal 22-32 Anion Gap 8 mmol/L Normal 2-11 Glucose 100 mg/dL Normal 70-100 Blood Urea Nitrogen 24 mg/dL Normal 6-24 Creatinine 1.04 mg/dL Normal 0.67-1.17 BUN/Creatinine Ratio 23.1 High 8-20 Calcium 9.7 mg/dL Normal 8.6-10.3 Total Protein 6.8 g/dL Normal 6.4-8.9 Albumin 4.4 g/dL Normal 3.2-5.2 Globulin 2.4 g/dL Normal 2-4 Albumin/Globulin Ratio 1.8 Normal 1-3 Total Bilirubin 0.90 mg/dL Normal 0.2-1.0 Alkaline Phosphatase 76 U/L Normal 34-104 Alt 233 U/L High 7-52 Ast 117 U/L High 13-39 Egfr Non- 71.7 >60 Egfr 86.7 >60 39 1 FASTING 12 HOUR 2 Because ethnic data is not always [...] 5 Kidney failure <15 (or dialysis) 3 Desirable: <150 Borderline High: 150-199 High: 200-499 Very High: >500 4 Desirable: <200 Borderline High: 200-239 High: >239 5 Low: <40 Desirable: 40-60 High: >60 6 Desirable: <100 Near Optimal: 100-129 Borderline High: 130-159 High: 160-189 Very High: >189 7 Therapeutic target for the treatment of diabetes mellitus patients is <7% HBA1C, and in selective patients <6.0%. Please refer to [place] [employer] diabetic care guidelines for further information. 8 Because ethnic data is not always readily [...] 15-29 5 Kidney failure <15 (or dialysis) 9 Desirable: <150 Borderline High: 150-199 High: 200-499 Very High: >500 10 Desirable: <200 Borderline High: 200-239 High: >239 11 Low: <40 Desirable: 40-60 High: >60 12 Desirable: <100 Near Optimal: 100-129 Borderline High: 130-159 High: 160-189 Very High: >189 13 FASTING in 3 weeks Copy Result to: DAVID MON ([id number]) 14 Because ethnic data is not always readily [...] 15-29 5 Kidney failure <15 (or dialysis) 15 Desirable: <150 Borderline High: 150-199 High: 200-499 Very High: >500 16 Desirable: <200 Borderline High: 200-239 High: >239 17 Low: <40 Desirable: 40-60 High: >60 18 Desirable: <100 Near Optimal: 100-129 Borderline High: 130-159 High: 160-189 Very High: >189 19 FASTING in 3 weeks Copy Result to: DAVID MON ([id number]) 20 Because ethnic data is not always readily [...] 15-29 5 Kidney failure <15 (or dialysis) 21 Desirable: <150 Borderline High: 150-199 High: 200-499 Very High: >500 22 Desirable: <200 Borderline High: 200-239 High: >239 23 Low: <40 Desirable: 40-60 High: >60 24 Desirable: <100 Near Optimal: 100-129 Borderline High: 130-159 High: 160-189 Very High: >189 25 SEE RESULT BELOW Name: VIJAY RIZZO : [address]: Juan Cervantes MD Acct: [id number] Unit: [id number] AGE: 63 Location: ENDO Re09/02/18 SEX: M Status: REG REF SPEC: [id number] ESSENCE: 09/02/18-[address] [facility] [address]: Juan Cervantes MD REQ: [id number] RECD: 09/02/18-1020 STATUS: SRINI SCANLON DR: Jake Aviles MD _ SOURCE: [facility]: ORDERED: Clotest Procedure Result Reported Site Clotest Final 09/03/18- 0800 ML Clotest Negative * ML - Main Lab . END OF REPORT DEPARTMENT OF PATHOLOGY, [address] [place] [address] Balwinder Chicas M.D. Director [facility] # [id number] 26 Troponin-I testing on Plasma Separator Tubes (PST) has a known false positive rate of 0.20-0.40%. All positive troponins reflex immediately to secondary confirmatory testing. Using the [employer] DxI 800 Access Immunoassay systems, the 99th percentile upper reference limit was demonstrated to be < 0.03 ng/mL. 27 Test Performed by: [address] [id number] 28 Desirable: <150 Borderline High: 150-199 High: 200-499 Very High: >500 29 Desirable: <200 Borderline High: 200-239 High: >239 30 Low: <40 Desirable: 40-60 High: >60 31 Desirable: <100 Near Optimal: 100-129 Borderline High: 130-159 High: 160-189 Very High: >189 32 Because ethnic data is not always readily [...] 15-29 5 Kidney failure <15 (or dialysis) 33 Copy Result to: DAVID MON ([id number]) STAT 34 Desirable: <150 Borderline High: 150-199 High: 200-499 Very High: >500 35 Desirable: <200 Borderline High: 200-239 High: >239 36 Low: <40 Desirable: 40-60 High: >60 37 Desirable: <100 Near Optimal: 100-129 Borderline High: 130-159 High: 160-189 Very High: >189 38 Test Performed by: [facility] [address] [place] [address] 39 Because ethnic data is not always readily [...] 15-29 5 Kidney failure <15 (or dialysis) Procedures Date Code Description Status 01/25/2019 95222 EKG Tracing & Interpretation Completed 09/02/2018 30645 Endoscopy Upper GI Biopsy Completed 08/26/2018 78584 EKG Tracing & Interpretation Completed 08/08/2018 53851 EKG Tracing & Interpretation Completed 04/25/2013 33345286 Colonoscopy Completed 04/06/2008 49340004 Colonoscopy Completed 03/26/2003 [id number] Colonoscopy Completed Medical Devices Description No Information Available Encounters Type Date Location Provider Dx Diagnosis Office Visit 10/19/2018 [place] [facility] Alan Aviles MD I25.10 [facility] heart 1:20p [facility] disease of [place] coronary artery w/o ang pctrs E78.5 Hyperlipidemia, unspecified R73.01 Impaired fasting glucose Office Visit 10/07/2018 [facility] Juan Zavala Z86.010 Personal 11:30a MD Billy history of colonic polyps R94.5 Abnormal results of liver function studies R07.89 Other chest pain Office Visit 09/07/2018 2:00p [facility] Juan Zavala R07.89 Other chest MD Billy pain R94.5 Abnormal results of liver function studies K44.9 Diaphragmatic hernia without obstruction or gangrene Office Visit 08/26/2018 4:00p [place] [facility] Jake Golden I25.10 [facility] Giancarlo Pineda disease of [place] coronary artery w/o ang pctrs R07.89 Other chest pain S36.119D Unspecified injury of liver, subsequent encounter Office Visit 08/11/2018 [facility] Juan Zavala R10.13 Epigastric pain 11:30a MD Billy I25.10 [facility] heart disease of [place] coronary artery w/o ang pctrs E11.9 Type 2 diabetes mellitus without complications Z79.899 Other detention (current) drug therapy Z86.010 Personal history of colonic polyps Office Visit 08/08/2018 [place] Jake Golden E78.5 Hyperlipidemia, 1:40p Cardiology Sandeep Pineda M.D. unspecified [facility] E11.9 Type 2 diabetes mellitus without complications I25.10 Aths[facility] heart disease of [place] coronary artery w/o ang pctrs I95.2 Hypotension due to drugs K21.9 Gastro-esophageal reflux disease without esophagitis R06.00 Dyspnea, unspecified R07.89 Other chest pain Assessments Date Code Description Provider 01/25/2019 I25.10 Atherosclerotic heart disease of [place] Jake Pineda M.D. coronary artery with 01/25/2019 E78.5 Hyperlipidemia, unspecified Jake Pineda M.D. 01/25/2019 K21.9 Gastro-esophageal reflux disease without Jake Pineda M.D. esophagitis 10/19/2018 I25.10 Atherosclerotic heart disease of [place] Alan Aviles MD coronary artery with 10/19/2018 E78.5 Hyperlipidemia, unspecified Alan Aviles MD 10/19/2018 R73.01 Impaired fasting glucose Alan Aviles MD 10/07/2018 Z86.010 Personal history of colonic polyps Juan Cervantes MD 10/07/2018 R94.5 Abnormal results of liver function Juan Cervantes MD studies 10/07/2018 R07.89 Chest discomfort Juan Cervantes MD 09/07/2018 R07.89 Chest discomfort Juan Cervantes MD 09/07/2018 R94.5 Abnormal results of liver function Juan Cervantes MD studies 09/07/2018 K44.9 Diaphragmatic hernia without obstruction Juan Cervantes MD or gangrene 09/02/2018 R10.13 Epigastric pain Juan Cervantes MD 09/02/2018 K21.9 Gastro-esophageal reflux disease without Juan Cervantes MD esophagitis 09/02/2018 K44.9 Diaphragmatic hernia without obstruction Juan Cervantes MD or gangrene 09/02/2018 R07.9 Chest pain, unspecified Juan Cervantes MD 09/02/2018 R79.89 Other specified abnormal findings of Juan Cervantes MD blood chemistry 09/02/2018 I25.118 [facility] heart disease of [place] cor art w Juan Cervantes MD [facility] ang pctrs 08/26/2018 I25.10 Atherosclerotic heart disease of [place] Jake Parmjit. Mauser , M.D. coronary artery with 08/26/2018 R07.89 Chest discomfort Jake Pineda M.D. 08/26/2018 S36.119D Injury of liver Jake Pineda M.D. 08/11/2018 R10.13 Epigastric pain Juan Cervantes MD 08/11/2018 I25.10 Atherosclerotic heart disease of [place] Juan Cervantes MD coronary artery with 08/11/2018 E11.9 Type 2 diabetes mellitus without Juan Cervantes MD complications 08/11/2018 Z79.899 Other assistant terminal manager (current) drug therapy Juan Cervantes MD 08/11/2018 Z86.010 Personal history of colonic polyps Juan Cervantes MD 08/08/2018 E78.5 Hyperlipidemia, unspecified Jake Pineda M.D. 08/08/2018 E11.9 Type 2 diabetes mellitus without Jake Pineda M.D. complications 08/08/2018 I25.10 Atherosclerotic heart disease of [place] Jake Pineda M.D. coronary artery with 08/08/2018 I95.2 Drug-induced hypotension Jake Pineda M.D. 08/08/2018 K21.9 Gastroesophageal reflux disease Jake Pineda M.D. 08/08/2018 R06.00 Dyspnea Jake Pineda M.D. 08/08/2018 R07.89 Chest discomfort Jake Pineda M.D. Plan of Treatment Future Appointment(s):03/06/2019 2:00 pm - Juan Cervantes MD at [facility] [id number]/06/2019 - Jake Pineda M.D.I25.10 Atherosclerotic heart disease [place] coronary artery withNew Labs:Lipid Panel - J[facility], Ordered : 01/25/19CBC Auto Diff, Ordered: 01/25/19Follow up:ov [id number] Hyperlipidemia, xsrtusyweppP19.9 Gastro-esophageal reflux disease without esophagitis Functional Status Description No Information Available Mental Status Description No Information Available Referrals Description No Information Available
--- NOTE | 2019-02-21 22:37 | ED ---
HPI Chest Pain - HPI Summary HPI Summary: Patient complains of sternal chest pain 3 days. Chest pain described as intermittent, stabbing, worse with lifting right arm and deep inhalation. History of chronic chest pain, but patient states he was sleepy today and had elevated blood pressure which is different decided to come in for further evaluation. Patient has history of NSTEMI 1 year ago with stent. Negative nuclear stress 04/22/18. History of chronic chest pain followed by afternoon nanny Dr. Pineda and GI Dr. Cervantes. History of LAD with 60% obstruction. Denies cough, fever, sore throat, SOB, N/V/D, abdominal pain, change in urine, change in BM. Medical history CAD, DM, HTN. Denies EtOH, recreational drug use, excessive caffeine, energy drinks. Patient on brilanta - History of Current Complaint Chief Complaint: EDChestPainROMI Time Seen by Provider: 02/21/19 22:33 Hx Obtained From: Patient Onset/Duration: Started Days Ago Timing: Intermittent, Lasting Minutes Initial Severity: Moderate Pain Scale Used: 0-10 Numeric Chest Pain Location: Mid Sternal Chest Pain Radiates: No Character: Sharp/Stabbing Aggravating Factor(s): Movement, Deep Breaths Alleviating Factor(s): Spontaneous Resolution Associated Signs and Symptoms: Positive: Chest Pain - Allergy/Home Medications Allergies/Adverse Reactions: Allergies Allergy/AdvReac Type Severity Reaction Status Date / Time ciprofloxacin Allergy Intermediate Nausea Verified 08/17/18 21:40 rosuvastatin Allergy elevated Verified 09/02/18 12:14 LFT's PMH/Surg Hx/FS Hx/Imm Hx Endocrine/Hematology History: Reports: Hx Diabetes - diet controlled Cardiovascular History: Reports: Hx Angina, Hx Angioplasty - 02/28/2018 1 stent done in [facility], Hx Coronary Artery Disease, Hx Hypercholesterolemia, Hx Myocardial Infarction Denies: Hx Cardiac Arrest, Hx Hypertension, Hx Valvular Heart Disease Respiratory History: Denies: Hx Asthma, Hx Chronic Obstructive Pulmonary Disease (COPD) History: Reports: Hx Benign Prostatic Hyperplasia, Other Problems/ Disorders - Urethral strictures Sensory History: Reports: Hx Contacts or Glasses - for reading Denies: Hx Hearing Aid Opthamlomology History: Reports: Hx Contacts or Glasses - for reading Neurological History: Denies: Hx Dementia - Surgical History Surgery Procedure, Year, and Place: TURP with f/u cauterization - Immunization History Date of Tetanus Vaccine: Unsure Date of Influenza Vaccine: UTD Infectious Disease History: No Infectious Disease History: Denies: Hx Clostridium Difficile, Hx Hepatitis, Hx Human Immunodeficiency Virus (HIV), Hx of Known/Suspected MRSA, Hx Shingles, Hx Tuberculosis, History Other Infectious Disease, Traveled Outside the [place] in Last 30 Days - Family History Known Family History: Positive: Cardiac Disease - Father, Other - Leukemia ( Mother) - Social History Alcohol Use: None Alcohol Amount: an ounce daily Hx Substance Use: No Substance Use Type: Reports: None Hx Tobacco Use: No Smoking Status (MU): Never Smoked Tobacco Have You Smoked in the Last Year: No Review of Systems Constitutional: Negative Eyes: Negative ENT: Negative Positive: Chest Pain Respiratory: Negative Gastrointestinal: Negative Genitourinary: Negative Musculoskeletal: Negative Skin: Negative Neurological: Negative Psychological: Normal All Other Systems Reviewed And Are Negative: Yes Physical Exam - Summary Physical Exam Summary: Chest pain not reproducible. Abdomen soft nontender. Triage Information Reviewed: Yes Vital Signs On Initial Exam: Initial Vitals Pulse Resp BP Pulse Ox 66 15 136/78 98 02/21/19 22:29 02/21/19 22:29 02/21/19 22:29 02/21/19 22:29 Vital Signs Reviewed: Yes Appearance: Positive: Well-Appearing Skin: Positive: Warm Head/Face: Positive: Normal Head/Face Inspection Eyes: Positive: Normal Neck: Positive: Supple Respiratory/Lung Sounds: Positive: Clear to Auscultation Cardiovascular: Positive: Normal Abdomen Description: Positive: Nontender Musculoskeletal: Positive: Normal Neurological: Positive: Normal Psychiatric: Positive: Normal AVPU Assessment: Alert - Joel Coma Scale Best Eye Response: 4 - Spontaneous Best Motor Response: 6 - Obeys Commands Best Verbal Response: 5 - Oriented Coma Scale Total: 15 Procedures - Sedation Patient Received Moderate/Deep Sedation with Procedure: No Diagnostics - Vital Signs Vital Signs Pulse Resp BP Pulse Ox 02/21/19 22:29 66 15 136/78 98 - Laboratory Result Diagrams: 02/21/19 22:53 02/21/19 22:53 Lab Statement: Any lab studies that have been ordered have been reviewed, and results considered in the medical decision making process. Chest Pain Course/Dx - Course Course Of Treatment: Patient complains of sternal chest pain 3 days. Chest pain described as intermittent, stabbing, worse with lifting right arm and deep inhalation. History of chronic chest pain, but patient states he was sleepy today and had elevated blood pressure which is different decided to come in for further evaluation. Patient has history of NSTEMI 1 year ago with stent. Negative nuclear stress 04/22/18. History of chronic chest pain followed by afternoon nanny Dr. Pineda and GI Dr. Cervantes. History of LAD with 60% obstruction. Denies cough, fever, sore throat, SOB, N/V/D, abdominal pain, change in urine, change in BM. Medical history CAD, DM, HTN. Denies EtOH, recreational drug use, excessive caffeine, energy drinks. Patient on brilanta. Vital signs within normal limits. Labs unremarkable. EKG sinus rhythm, rate of 63, same as prior. Serial troponins negative. heart score 4. Neg nuc stress 04/2018. Hx of chronic CP. Followed by Dr pineda. Discussed patient with Dr. Hinton attending who also agreed patient could be discharged with follow-up with cardiology. - Diagnoses Provider Diagnoses: Atypical chest pain Discharge ED - Sign-Out/Discharge Documenting (check all that apply): Patient Departure - Discharge Plan Condition: Stable Disposition: HOME Patient Education Materials: Chest Pain (ED) Referrals: David Mon MD [Primary Care Provider] - Additional Instructions: Follow-up with your afternoon nanny Dr. Pineda for further evaluation of chronic chest pain. Return to the ED for any new or worsening symptoms - Billing Disposition and Condition Condition: STABLE Disposition: Home
[2019-02-21 23:07] LABS: ABS Eosinophils 0.2 10^3/ul (0-0.6); ABS Lymphocytes 1.6 10^3/ul (1.0-4.8); ABS Monocytes 0.8 10^3/ul (0-0.8); ABS Neutrophils 4.1 10^3/ul (1.5-7.7); Eosinophil % 2.7 %; Hematocrit 43 % (42-52); Hemoglobin 14.9 g/dL (14.0-18.0); Lymphocyte % 23.4 %; Mean Corpuscular HGB Conc 34 g/dL (31-36); Mean Corpuscular Hemoglobin 31 pg (27-31); Mean Corpuscular Volume 91 fL (80-94); Mean Platelet Volume 9.3 fL (7.4-10.4); Nucleated Red Blood Cells % 0.1; Platelet Count 147 10^3/uL (150-450); Red Blood Count 4.78 10^6 /uL (4.18-5.48); Red Cell Distribution Width 14 % (10-15); White Blood Count 6.8 10^3/uL (3.5-10.8)
[2019-02-21 23:24] LABS: ALT 26 U/L (7-52); Albumin 4.3 g/dL (3.2-5.2); Albumin/Globulin Ratio 1.8 (1-3); Alkaline Phosphatase 55 U/L (34-104); BUN/Creatinine Ratio 19.8 (8-20); Blood Urea Nitrogen 25 mg/dL (6-24); C Reactive Protein < 1.00 mg/L (<8.01); CO2 Carbon Dioxide 28 mmol/L (22-32); Calcium 9.8 mg/dL (8.6-10.3); Chloride 105 mmol/L (101-111); EGFR African American 69.5 (>60); EGFR Non-African American 57.4 (>60); Globulin 2.4 g/dL (2-4); Glucose 121 mg/dL (70-100); Magnesium 2.1 mg/dL (1.9-2.7); Sodium 139 mmol/L (135-145); Total Protein 6.7 g/dL (6.4-8.9)
[2019-02-21 23:33] LABS: Urine Appearance Clear; Urine Bilirubin Negative (Negative); Urine Blood 1+ (Negative); Urine Color Straw; Urine Glucose Negative (Negative); Urine Ketones Negative (Negative); Urine Nitrite Negative (Negative); Urine Protein Negative (Negative); Urine Specific Gravity 1.005 (1.010-1.030); Urine Urobilinogen Negative (Negative)
[2019-02-21 23:38] LABS: Urine Bacteria Absent (Absent); Urine Red Blood Cell Trace(0-2/hpf) (Absent); Urine White Blood Cell Trace(0-5/hpf) (Absent)
[2019-02-21] MEDS ORDERED: NS 0.9% 1000 ML** 1,000 ML IV ONE (23:50)
[2019-02-21 23:58] LABS: Anion Gap 6 mmol/L (2-11)
[2019-02-22 00:04] LABS: AST 21 U/L (13-39)
[2019-02-22 02:53] VITALS: BP 119/80
== END 2019-02-22 02:52 | disposition home or self-care (01) ==
LOC: ED 22:17
DX: R07.89 Other chest pain (principal); N40.0 Benign prostatic hyperplasia without lower urinary tract symptoms
CPT/HCPCS: 36415; 80053; 81003; 81015; 83735; 84484; 85025; 86140; 87086; 93005; 96360; 99283